=== PATIENT | female | born 2000 | race Caucasian/White ===

== ENCOUNTER → 2023-03-09 | Outpatient (CLI) | payer OTHER, SELFPAY ==
[2023-03-09 10:42] LABS: Absolute Lymphocyte Count 1.13 X10^3/uL (0.83-4.51); Absolute Neutrophil Count 4.9 X10^3/uL (2.0-7.7); Basophil# 0.04 X10^3/uL; Basophil% 0.6 % (0-1); Eosinophil# 0.05 X10^3/uL; Eosinophils% 0.8 % (0-5); Hematocrit 41.4 % (37-47); Lymphocyte # 1.13 X10^3/ul (0.83-4.51); Lymphocyte % 17.4 % (19-41); Mean Corp Hgb Conc 33.8 g/dL (32-36); Mean Corpuscular Hgb 30.3 pg (27.0-32.0); Mean Corpuscular Volume 89.6 fL (81-99); Mean Platelet Vol. 10.5 fl (6.2-12.0); Monocyte# 0.36 X10^3/uL; Monocyte% 5.5 % (0-10); NRBC Flagged by Analyzer 0 % (0-5); Neutrophil # 4.88 X10^3/uL (2.7-7.7); Neutrophil % 75.2 % (47-70); Platelet Count 262 K/mm3 (150-450); RBC Distribution Width CV 11.9 % (11.6-14.6); RBC Distribution Width SD 38.5 fl (35.1-43.9); Red Blood Count 4.62 M/mm3 (4.2-5.4); White Blood Count 6.5 K/mm3 (4.4-11.0)
[2023-03-09 11:23] LABS: NATERA MAILED SPECIMEN
[2023-03-09 11:43] LABS: HIV - WCH Non-Reactive (Nonreactive); Hepatitis B Surface Antigen Non-Reactive (Nonreactive); Hepatitis C Antibody Non-Reactive (Nonreactive); Rubella IgG Non-Reactive (Nonreactive); Syphilis Antibodies Non-reactive
[2023-03-10 22:07] LABS: Chlamydia By Nucleic Acid AMP Negative (Negative); Gonococcus By Nucleic Acid AMP Negative (Negative)
[2023-03-11 17:23] LABS: HPV Reflexed? NOT INDICATED
== END | disposition home or self-care (01) ==
PROVIDERS: Referring Provider Advanced Practice Midwife; Visit Provider Advanced Practice Midwife
DX: Z34.00 Encounter for supervision of normal first pregnancy, unspecified trimester (principal)
CPT/HCPCS: 36415; 85025; 86703; 86762; 86780; 86803; 86850; 86900; 86901; 87086; 87340; 87491; 87591; 88175; G0145

== ENCOUNTER → 2023-05-10 | Outpatient (CLI) | payer SELFPAY, OTHER ==
--- NOTE | 2023-05-10 12:14 | US_ITS ---
STUDY: SECOND AND THIRD TRIMESTER OBSTETRICAL ULTRASOUND REASON FOR EXAM: Female, 22 years old -- ANATOMY -- LMP: December 28, 2022. TECHNIQUE: Transabdominal and Transvaginal TECHNICAL QUALITY: Adequate. PRIOR ULTRASOUND: None. FINDINGS: There is a single intrauterine fetus. The fetus is in a cephalic presentation. There is demonstrated cardiac activity with a heart rate of 162 bpm. There is a normal amniotic fluid volume. The largest amniotic fluid pocket measures 2.9 cm x 6.6 cm. The amniotic fluid index (WATSON) is within normal limits. The placenta is posterior in location and is not low lying. There are Grade 0 placental changes. The cervix measures 6.1 cm in length. The adnexal regions are not visualized. BIOMETRY: BPD: 4.41 cm: 19 weeks, 2 days HC: 16.28 cm: 19 weeks, 0 days AC: 13.86 cm: 19 weeks, 2 days FL: 3.02 cm: 19 weeks, 2 days CI: 81.6% FL/BPD: 68.4% FL/HC: FL/AC: 21.8% HC/AC: 1.17 age by current US: 19 weeks, 0 days. LANCE by current US: October 04, 2023. Estimated weight: 285 grams, +/- 43 grams, 63.6 %. Age by LMP: 19 weeks, 0 days. LANCE by LMP: October 04, 2023. ANATOMY: Gender: Male Cranium: Normal lateral ventricles. Normal choroid plexus. Normal cerebellum. Normal cisterna magna. Normal face, nose and lips. Chest: Normal 4-chamber heart. Abdomen/Pelvis: Normal diaphragm. Normal stomach. Normal abdominal wall. Normal cord insertion. Normal 3 vessel cord. Normal kidneys. Normal bladder. Spine: Normal cervical spine. Normal thoracic spine. Normal lumbar spine. Normal sacrum. Extremities: Normal bilateral upper extremities. Normal bilateral lower extremities. US/OB Anatomy Scan IMPRESSION: Single live intrauterine gestation with mean gestational age of 19 weeks. Electronically Signed: Joao Noel MD at 9:37 EDT ,
== END | disposition home or self-care (01) ==
LOC: OPUS 12:12
PROVIDERS: Referring Provider Advanced Practice Midwife; Visit Provider Advanced Practice Midwife
DX: Z34.90 Encounter for supervision of normal pregnancy, unspecified, unspecified trimester (principal)
CPT/HCPCS: 76805; 76817

== ENCOUNTER → 2023-07-07 | Outpatient (CLI) | payer OTHER, SELFPAY ==
[2023-07-07 10:28] LABS: Absolute Lymphocyte Count 1.39 X10^3/uL (0.83-4.51); Basophil# 0.07 X10^3/uL; Eosinophil# 0.07 X10^3/uL; Hematocrit 38.1 % (37-47); Hemoglobin 12.8 g/dL (12.0-15.0); Lymphocyte # 1.39 X10^3/ul (0.83-4.51); Lymphocyte % 19.7 % (19-41); Mean Corp Hgb Conc 33.6 g/dL (32-36); Mean Corpuscular Hgb 31.5 pg (27.0-32.0); Mean Corpuscular Volume 93.8 fL (81-99); Mean Platelet Vol. 10.2 fl (6.2-12.0); Monocyte# 0.46 X10^3/uL; Monocyte% 6.5 % (0-10); NRBC Flagged by Analyzer 0 % (0-5); Neutrophil # 4.99 X10^3/uL (2.7-7.7); Neutrophil % 70.8 % (47-70); Platelet Count 226 K/mm3 (150-450); RBC Distribution Width CV 12.7 % (11.6-14.6); RBC Distribution Width SD 43.9 fl (35.1-43.9); Red Blood Count 4.06 M/mm3 (4.2-5.4); White Blood Count 7.1 K/mm3 (4.4-11.0)
[2023-07-07 10:52] LABS: Glucose Challenge Gest 1H 50g 103 mg/dL (70-140)
[2023-07-07 11:33] LABS: HIV - WCH Non-Reactive (Nonreactive); Syphilis Antibodies Non-reactive
== END | disposition home or self-care (01) ==
LOC: LAB 10:01
PROVIDERS: PCP Family Medicine; Referring Provider Advanced Practice Midwife; Visit Provider Advanced Practice Midwife
DX: Z34.00 Encounter for supervision of normal first pregnancy, unspecified trimester (principal)
CPT/HCPCS: 36415; 82950; 85025; 86703; 86780

== ENCOUNTER → 2023-09-02 | Outpatient (CLI) | payer OTHER, SELFPAY ==
--- NOTE | 2023-09-02 12:08 | US_ITS ---
EXAM: US , LIMITED CLINICAL INDICATION: uterine size date discrepancy TECHNIQUE: Real-time limited ultrasound of the maternal uterus with image documentation. COMPARISON: US Limited dated 05/10/2023 FINDINGS: FETUS: Single fetus. GESTATIONAL AGE: Estimated gestational age by measurements is 30 weeks 6 days. Clinical gestational age is 35 weeks 3 days. LANCE: Clinical LANCE is October 04, 2023. Normal interval growth. EFW: Estimated weight is 2429 g. BPD: Biparietal diameter is 8.2 cm. HC: Head circumference is 31.8 cm. AC: Abdominal circumference is 30.1 cm. FL: Femur length is 7.1 cm. POSITION: Breech presentation. HEART RATE: cardiac rate is 135 bpm. PLACENTA: Posterior left lateral placenta. AMNIOTIC FLUID: Amniotic fluid index is 7.8 cm. CERVIX: Cervix is not adequately visualized. US/OB Limited With Biometrics IMPRESSION: Single live third trimester intrauterine gestation in breech presentation. Normal interval growth. Electronically Signed: Han Schwartz MD at 14:15 EST ,
== END | disposition home or self-care (01) ==
LOC: OPUS 12:08
PROVIDERS: PCP Family Medicine; Referring Provider Advanced Practice Midwife; Visit Provider Advanced Practice Midwife
DX: O26.849 Uterine size-date discrepancy, unspecified trimester (principal); Z3A.00 Weeks of gestation of pregnancy not specified
CPT/HCPCS: 76816

== ENCOUNTER 2023-09-09 17:50 | Inpatient (IN) | payer SELFPAY, OTHER ==
[2023-09-09] VITALS (10 sets, daily range): BP systolic 106–128; BP diastolic 53–71; PULSE 74–93; RESP 12–18; TEMP 36.4–37.3; O2SAT 96–99; BMI 27.6
[2023-09-09] MEDS: Lactated Ringers 1,000 ML 999 ML IV (18:20)
[2023-09-09 18:48] LABS: Absolute Lymphocyte Count 1.64 X10^3/uL (0.83-4.51); Absolute Neutrophil Count 6.2 X10^3/uL (2.0-7.7); Basophil# 0.05 X10^3/uL; Basophil% 0.6 % (0-1); Eosinophil# 0.08 X10^3/uL; Eosinophils% 0.9 % (0-5); Hemoglobin 12.7 g/dL (12.0-15.0); Lymphocyte # 1.64 X10^3/ul (0.83-4.51); Lymphocyte % 18.9 % (19-41); Mean Corp Hgb Conc 33.4 g/dL (32-36); Mean Corpuscular Hgb 30.9 pg (27.0-32.0); Mean Corpuscular Volume 92.5 fL (81-99); Mean Platelet Vol. 10.8 fl (6.2-12.0); Monocyte# 0.59 X10^3/uL; Monocyte% 6.8 % (0-10); NRBC Flagged by Analyzer 0 % (0-5); Neutrophil # 6.19 X10^3/uL (2.7-7.7); Neutrophil % 71.5 % (47-70); Platelet Count 226 K/mm3 (150-450); RBC Distribution Width CV 12.8 % (11.6-14.6); RBC Distribution Width SD 43.1 fl (35.1-43.9); Red Blood Count 4.11 M/mm3 (4.2-5.4); White Blood Count 8.7 K/mm3 (4.4-11.0)
[2023-09-09] MEDS: Acetaminophen 500 MG Tablet 1000 MG PO (18:54)
[2023-09-09] MEDS: Sodium Citrate/Citric Acid 30 ML UDC PO (19:27)
[2023-09-09] MEDS: Lactated Ringers 1,000 ML 150 ML IV (19:27)
[2023-09-09 20:28] LABS: Syphilis Antibodies Non-reactive
[2023-09-09] MEDS: Ondansetron 4 MG/2 ML Vial IV (20:33)
--- NOTE | 2023-09-09 20:44 | HP.PCM.OB_ITS ---
HPI - General General Date of Admission: 09/09/23 HPI Narrative BETZY WORTHY, is a 23 F who presents with oligohydramnios WATSON 3.5 cm on US today, decreased movement. no vb lof no regular ctx, 2 cm dilated and breech. Maternal Data Information LANCE Calculator Estimated Delivery Date Method Current WG Current Estimate 10/04/23 LMP (Certain) 36w 3d PFSH PFS Medical History (Updated 09/09/23 @ 20:[address] Betzy Blanton MD) History of ovarian cyst Oligohydramnios Home Medications vitamin#30 30 mg iron-10 mg iron-folic acid 1 mg-omg3 capsule 1 cap PO DAILY 03/09/23 [History Last Taken 09/09/23 12:00] Allergy/AdvReac Type Severity Reaction Status Date / Time No Known Allergies Allergy Verified 09/09/23 18:11 Family History Grandfather Heart disease Surgical History S/P appendectomy Social History adopted: No household members: spouse current occupational status: unemployed pets and animals: Yes pets and animals: dog(s) history of recent travel: No sexually active: Yes Smoking Status: Never smoker alcohol intake: never substance use type: does not use caffeine: Yes Type: coffee Number of servings: 1 seatbelt use: always do you feel safe at home: Yes 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 History 1 Elective abortions Hx Para 0 Spontaneous abortions Hx # Term Pregnancies Ectopic pregnancies Hx # Pregnancies Multiple births # of living children Visit Details Expected Delivery Route/Plan Labor Preferences- CB/BF classes: discussed and encouraged labor support person: Roger labor intervention preferences: unmedicated preferred, hydrotherapy pain management options preferred: hydrotherapy cut cord/dad catch: [] : Wants PP control planned: [] discussed possible routes of delivery and associated risks: [] special requests: [] Plans Covid status: discussed and declines Flu vaccine: declines Tdap vaccine: declines Rhogam: NA LARC form signed: completed. Problem list reviewed and updated with the most current plan of care details and appropriate orders placed. Relevant counseling for the gestational age provided. Continue routine care and follow up unless otherwise noted in visit notes/problem list details OB Flowsheet Initial Weight: Not Recorded Date -?-?-?-?-?-?-?-?-?-?-?-?- EGA Weight BP Urine Prot -?-?-?-?-?-?-?-?-?-?-?-?- Glucose FHR FuHt Pres Dilation -?-?-?-?-?-?-?-?-?-?-?-?- Effaced St Visit Note 03/09/23 -?-?-?-?-?-?-?-?-?-?-?-?- 10w 1d 125 lb 4 oz 122/75 -?-?-?-?-?-?-?-?-?-?-?-?- 165 -?-?-?-?-?-?-?-?-?-?-?-?- KW-CRL 3.45cm on handheld US. 04/07/23 -?-?-?-?-?-?-?-?-?-?-?-?- 14w 2d 125 lb 107/70 Negative -?-?-?-?-?-?-?-?-?-?-?-?- Negative 145 -?-?-?-?-?-?-?-?-?-?-?-?- KW-No vb/crampin g. labs reviewed. US ordered-[facility] 05/10/23 -?-?-?-?-?-?-?-?-?-?-?-?- 19w 0d 132 lb 121/73 Negative -?-?-?-?-?-?-?-?-?-?-?-?- Negative 143 -?-?-?-?-?-?-?-?-?-?-?-?- LC-no vb/crampin g. no concerns. has anatomy today. 06/07/23 -?-?-?-?-?-?-?-?-?-?-?-?- 23w 0d 137 lb 117/74 Negative -?-?-?-?-?-?-?-?-?-?-?-?- Negative 144 22 -?-?-?-?-?-?-?-?-?-?-?-?- KW-no vb/crampin g. good fm. 28 week labs discussed. Normal anatomy scan. CBE classes discussed. 07/07/23 -?-?-?-?-?-?-?-?-?-?-?-?- 27w 2d 142 lb 4 oz 121/74 Nega tive -?-?-?-?-?-?-?-?-?-?-?-?- Negative 155 26 -?-?-?-?-?-?-?-?-?-?-?-?- LC- no vb/ctx/lo f. good fm. normal 28 weeks. passed glucose. LC- no vb/ctx/lof. good fm. normal 28 weeks. passed glucose. larc completed. declines tdap. 07/22/23 -?-?-?-?-?-?-?-?-?-?-?-?- 29w 3d 144 lb 4 oz 113/72 Trac e -?-?-?-?-?-?-?-?-?-?-?-?- Negative 148 28 -?-?-?-?-?-?-?-?-?-?-?-?- LC- no lof/ctx/v b. good fm. no concerns. pedi discussed 08/06/23 -?-?-?-?-?-?-?-?-?-?-?-?- 31w 4d 147 lb 6 oz 123/77 Nega tive -?-?-?-?-?-?-?-?-?-?-?-?- Negative 145 30 -?-?-?-?-?-?-?-?-?-?-?-?- JV-- no lof, vag inal bleeding or dec fm. starting to feel round ligament pain. remedies discussed. 08/18/23 -?-?-?-?-?-?-?-?-?-?-?-?- 33w 2d 149 lb 8 oz 117/74 117/74 Negative -?-?-?-?-?-?-?-?-?-?-?-?- Negative 140 30 -?-?-?-?-?-?-?-?-?-?-?-?- KW- no vb/lof/ct x. good fm. discussed possible US at next visit if still measuring S<D. 09/02/23 -?-?-?-?-?-?-?-?-?-?-?-?- 35w 3d 154 lb 120/60 Negative -?-?-?-?-?-?-?-?-?-?-?-?- Negative 145 33 Cephalic -?-?-?-?-?-?-?-?-?-?-?-?- SM- no vb lof go od fm no regular ctx getting ultrasound today 09/09/23 -?-?-?-?-?-?-?-?-?-?-?-?- 36w 3d 154 lb 8 oz 116/78 Nega tive -?-?-?-?-?-?--?-?-?-?-?-?- Negative 140 32 Breech 2 -?-?-?-?-?-?-?-?-?-?-?-?- 60 -3 LC- no vb/ ctx/lof. good fm. breech on leopolds and handheld us. has us this afternoon. check WATSON/growth. if favorable would consent to version. NST FHR Rate Baby A Baseline: 130 Variability:: Moderate Accelerations:: 15 x 15 Decelerations:: None NST Reactive:: Yes FHR Category:: Category I Uterine Activity:: irregular ROS Constitutional Constitutional: Reports systems reviewed and no addt'l complaints, except as documented Eyes Eyes: Denies change in vision ENT HEENT: Reports systems reviewed and no addt'l complaints, except as documented; Denies headache(s) Cardiovascular Cardiovascular: Reports systems reviewed and no addt'l complaints, except as documented; Denies chest pain or dyspnea Respiratory/Chest Respiratory/Chest: Reports systems reviewed and no addt'l complaints, except as documented Gastrointestinal Gastrointestinal: Reports systems reviewed and no addt'l complaints, except as documented; Denies abdominal pain Genitourinary Genitourinary: Reports systems reviewed and no addt'l complaints, except as documented, contractions Details: present (irregular) and movement Details: present; Denies dysuria or genital lesions Musculoskeletal Musculoskeletal: Reports systems reviewed and no addt'l complaints, except as documented Neurologic Neurologic: Reports systems reviewed and no addt'l complaints, except as documented Endocrine Endocrinology: Reports systems reviewed and no addt'l complaints, except as documented Vital Signs Vital Signs Vital Signs: 09/09/23 18:04 09/09/23 18:04 09/09/23 18:04 Temperature Temperature Source Pulse Rate 86 78 Respiratory Rate Blood Pressure 122/56 H Blood Pressure Mean BP Systolic 122 BP Diastolic 56 Blood Pressure Source Blood Pressure Position Blood Pressure Location Pulse Ox Oxygen Delivery Method 09/09/23 18:04 09/09/23 19:18 09/09/23 19:18 Temperature Temperature Source Pulse Rate 93 Respiratory Rate Blood Pressure 122/71 H Blood Pressure Mean BP Systolic 122 BP Diastolic 71 Blood Pressure Source Blood Pressure Position Blood Pressure Location Pulse Ox 99 Oxygen Delivery Method 09/09/23 18:04 09/09/23 18:04 Temperature 99.2 F H Temperature Source Oral Pulse Rate 78 Respiratory Rate 16 Blood Pressure 122/56 H Blood Pressure Mean 78 BP Systolic BP Diastolic Blood Pressure Source Monitor Blood Pressure Position Right Lateral Blood Pressure Location Left Arm Pulse Ox 98 99 Oxygen Delivery Method Room Air Weight Weight: 156 lb 1.396 oz Body Mass Index (BMI) 27.6 Physical Exam Const alert, oriented x3, no apparent distress and healthy appearing HEENT normocephalic and moist oral mucous membranes Head and Scalp: atraumatic Neck full ROM, no lymphadenopathy, supple and thyroid normal General: trachea midline Lymph Lymphatic: no lymphadenopathy noted Chest inspection of chest normal Resp normal respiratory effort Cardio regular rate GI normal to inspection, nondistended, normoactive bowel sounds, soft to palpation and non-tender Inspection: gravid Extremity normal to inspection General Extremity: Negative for edema Skin no rashes or lesions noted Neuro no focal motor deficits and deep tendon reflexes 2+ bilaterally Motor Exam: strength 5/5 throughout and clonus absent Psych mental status grossly normal Labs Labs Labs: Blood Type A POSITIVE Antibody Screen NEGATIVE Hct 38.0 % (37-47) Hgb 12.7 g/dL (12.0-15.0) Obstetrics Ultrasound Syphilis Total Ab Non-reactive Rubella IgG Antibody Non-Reactive (Nonreactive) Hep Bs Antigen Non-Reactive (Nonreactive) Hepatitis C Antibody Non-Reactive (Nonreactive) Chlamydia DNA (TESHA) Negative (Negative) N.gonorrhoeae DNA (TESHA) Negative (Negative) HIV 1&2 Antibody Non-Reactive (Nonreactive) Glucose 1 Hr 50 gm 103 mg/dL (70-140) Assessment & Plan (1) Oligohydramnios in third trimester: COMMENT: watson 3.5 cm upon reviewing images recommend immediate delivery 36 weeks (2) Breech presentation: COMMENT: if WATSON normal would like to trial a version between 37-38 weeks. (3) Uterine size date discrepancy : COMMENT: growth us ordered (4) Rubella non-immune status, antepartum: COMMENT: offer MMR (5) Supervision of normal first : COMMENT: PRR LANCE 10/04/23 boy C(K)andrew Roger (6) : QUALIFIERS: Weeks of gestation: 36 weeks Qualified Code(s): Z3A.36 - 36 weeks gestation of COMMENT: NIPT low risk carrier and ntd declined, anatomy nl, nl GCT (7) Decreased movements in third trimester: PLAN: Plan proceed with primary low transverse section
--- NOTE | 2023-09-09 20:48 | EX.PCM.OBRPT ---
Assessment & Plan (1) delivery delivered: COMMENT: SM 36 Oligo LTCS breech [place] boy Maternal Data Information LANCE Calculator Estimated Delivery Date Method Current WG Current Estimate 10/04/23 LMP (Certain) 36w 3d Final LANCE Source: LMP Details Operative Information Date of Procedure: 09/09/23 Pre-Operative Diagnosis: breech oligo doris 3.5 cm Post-Operative Diagnosis: same Indications for : Breech Indications Narrative: Surgeon: Betzy Blanton MD Classification: ANGIE Procedure Type: low transverse scaffold setter #1: Alena Lam Type of Anesthesia: Spinal Special Medications: none Antibiotic Given: Ancef 2 grams IV x1 Drain: Lopez to straight drain Fluids Replaced: crystalloid Procedure Start Time: 21:06 Procedure Stop Time: 22:08 Findings Description of Procedure: Spinal anesthesia was placed without difficulty. Lopez catheter was placed. The patient was placed in the dorsal supine position with leftward tilt. Patient was prepped and draped in the normal sterile fashion. Pfannenstiel skin incision was made with the scalpel and carried through to the underlying layer of fascia with the scalpel. Fascia was nicked in the midline and the incision extended laterally. The rectus bellies were dissected off superiorly and inferiorly with out complication both sharply and bluntly. The peritoneum was entered digitally. The incision was stretched and a low transverse uterine incision was made with the scalpel. The buttox was delivered atraumatically and the right and left legs were swept anteriorly and delivered, followed by the body and the arms which were swept anteriorly and delivered. Gentle traction was placed on the mentum to flex the head which was delivered without complication. The cord was clamped and cut and the was handed off to awaiting nurse. The placenta was delivered spontaneously immediately following and was noted to be intact and have a three-vessel cord. The uterus was exteriorized cleared of all clots and debris, and the incision was closed in a single layer closure using #1 Monocryl. The ovaries and fallopian tubes were noted to be within normal limits. The uterus was returned to the maternal abdomen and gutters were cleared of all clots and debris. The peritoneum was closed with 3-0 Monocryl in a running fashion. horacio placed over incision. Fascia was closed with 0 PDS in a running fashion. Subcutaneous tissue was copiously irrigated and the skin was closed with 3-0 Monocryl in a subcuticular fashion. Mepilex dressing was applied without complication. Patient was taken to recovery in stable condition. It was discussed with the patient that based on the clinical information obtained during this encounter, combined with her history, at this time I would recommend vaginal or cesareans for future deliveries if further pregnancies are desired. Amniotic Membrane Rupture Type: Artificial Amniotic Fluid Description: Clear Placenta Disposition: [facility] Cord Vessel Description: 3 Vessels Delayed Cord Clamping: Yes Complications Risks of Surgery Discussed w/Patient: Bleeding, Infection, Need for Future C-Sections and Injury to surrounding structure(s) including bowel and bladder Vaginal Delivery Complication Complications: None Admit VTE Documentation VTE Present on Admission: No VTE Mechan Device Prophylaxis: SCD's Procedures Urinary/Genital [id number]: [id number] Delivery [facility]
--- NOTE | 2023-09-09 20:53 | DCINST_ITS ---
Discharge Instructions Diet Discharge Diet: No restrictions Activity Discharge Activity: May Not Drive (for 2 weeks or while taking narcotic pain medications.), May Shower and May Take a Tub Bath (in 7 days) May shower in (days): 0 May resume sexual activity in: 4-6 weeks Weight Bearing Status: Full weight bearing Lifting Restrictions: 20 pounds Dressing / Incision Call your doctor if your incision/area has: Continuous Slow Oozing, Sudden Increased Bleeding, Increased Pain/ Swelling, Increased Redness and Foul Smelling Discharge Call your doctor if you observe: Fever of 101 or Higher and Using more than 1 pad per hour (for 2 hours) Suture Line Care: Avoid Pulling/Pushing and Avoid Pinching/Bending Cleanse incision/area with: Soap & Water and Keep Dressing Clean & Dry Follow Up Care Please Follow Up With: Betzy Blanton MD When: Call [phone] to make an appointment for an incision check in 1-2 weeks. Test Results: Test results from this visit will be discussed in further detail at your follow- up appointment, if applicable. Discharge Plan Admission Admit Date/Time: 09/09/23 17:50 Attending Provider: Betzy Blanton Primary Care Provider: Dudley Escalona Discharge Orders/Prescriptions Prescriptions: New oxycodone-acetaminophen [Percocet] 5-325 mg tablet 1 tab PO Q6H PRN (Reason: pain) 7 Days Qty: 10 0RF naproxen [naproxen] 500 mg tablet 500 mg PO BID PRN PRN (Reason: Pain) Qty: 30 1RF No Action PNV #[id number] 30 mg iron-10 mg iron-1 mg capsule 1 cap PO DAILY Referrals / Follow Up: Dudley Escalona MD [Primary Care Provider] - Disposition Disposition (needs filled in before D/C Order can be placed): Home, Self Care
[2023-09-09] MEDS: Cefazolin 2 GM in 0.9% Normal Saline (100mL Bag) 100 ML IV (21:25)
[2023-09-09] MEDS: Oxytocin 15 Units/NS 250ml 15 UNITS/250 ML IV.SOLN 83 UNITS IV (22:15)
[2023-09-09] MEDS: Ketorolac 30 MG/ML Syringe IV (22:40)
[2023-09-10] VITALS (14 sets, daily range): BP systolic 80–133; BP diastolic 30–66; PULSE 48–94; RESP 15–16; TEMP 36.2–37.1; O2SAT 95–98
[2023-09-10] MEDS: Acetaminophen 500 MG Tablet 1000 MG PO ×4 (01:06→18:30)
[2023-09-10] MEDS: Lactated Ringers 1,000 ML 100 ML IV (01:06)
[2023-09-10] MEDS: Ketorolac 30 MG/ML Syringe IV ×3 (03:47→17:02)
[2023-09-10] MEDS: SimETHICONE 80 MG Chewable Tablet PO (03:47)
[2023-09-10] MEDS: LACTATED RINGERS 500 ML 999 ML IV (03:51)
[2023-09-10 04:08] LABS: Hemoglobin 10.7 g/dL (12.0-15.0); Mean Corp Hgb Conc 33.4 g/dL (32-36); Mean Corpuscular Hgb 31.2 pg (27.0-32.0); Mean Corpuscular Volume 93.3 fL (81-99); Mean Platelet Vol. 10.6 fl (6.2-12.0); Platelet Count 203 K/mm3 (150-450); RBC Distribution Width SD 44.1 fl (35.1-43.9); Red Blood Count 3.43 M/mm3 (4.2-5.4); White Blood Count 11.4 K/mm3 (4.4-11.0)
--- NOTE | 2023-09-10 08:33 | PN.OBGYN_ITS ---
Subjective Subjective Patient doing well without complaints. Tolerating PO. Ambulating and voiding without difficulty. feeding well. Denies chest pain, shortness of breath, calf pain/swelling, fevers, chills, lightheadedness. Objective Data Objective Data Vital Signs: Vital Signs Temp Pulse Resp BP Pulse Ox O2 Del Method 98.7 F 80 16 102/55 L 95 Room Air 09/10/23 08:15 09/10/23 08:15 09/10/23 08:15 09/10/23 08:15 09/10/23 08:15 09/10/23 08:15 Oxygen Delivery Method Room Air Weight: 156 lb 1.396 oz Body Mass Index (BMI) 27.6 Intake & Output: Intake and Output for Last 24 Hours 09/08/23 09/09/23 09/10/23 23:59 23:59 23:59 Intake Total 1530 / 1530 850 / 850 Output Total 400 / 400 700 / 700 Balance 1130 / 1130 150 / 150 Lab / Micro Data 09/10/23 04:04 Labs: Laboratory Results - last 24 hr 09/09/23 18:25: WBC 8.7, RBC 4.11 L, Hgb 12.7, Hct 38.0, MCV 92.5, MCH 30.9, MCHC 33.4, RDW Std Deviation 43.1, RDW Coeff of Chantale 12.8, Plt Count 226, MPV 10.8, Immature Gran % (Auto) 1.300 H, Neut % (Auto) 71.5 H, Lymph % (Auto) 18.9 L, [place]erry % (Auto) 6.8, Eos % (Auto) 0.9, Baso % (Auto) 0.6, Absolute Neuts (auto) 6.2, Absolute Lymphs (auto) 1.64, Nucleated RBC % 0, Syphilis Total Ab Non-r eactive, Blood Type A POSITIVE, Antibody Screen NEGATIVE 09/10/23 04:04: WBC 11.4 H, RBC 3.43 L, Hgb 10.7 L, Hct 32.0 L, MCV 93.3, MCH 31.2, MCHC 33.4, RDW Std Deviation 44.1 H, RDW Coeff of Chantale 13.0, Plt Count 203, MPV 10.6 ROS Constitutional Constitutional: Reports systems reviewed and no addt'l complaints, except as documented Cardiovascular Cardiovascular: Reports systems reviewed and no addt'l complaints, except as documented Respiratory/Chest Respiratory/Chest: Reports systems reviewed and no addt'l complaints, except as documented Gastrointestinal Gastrointestinal: Reports systems reviewed and no addt'l complaints, except as documented Physical Exam Const alert, oriented x3 and no apparent distress HEENT Head and Scalp: atraumatic Resp normal respiratory effort GI soft to palpation and non-tender Inspection: incision intact, healing well and drainage (none) Bimanual Exam - Vag & Uterus: uterus non-tender Uterus Palpation: uterus fundus firm (below Umbilicus) Assessment & Plan (1) Rubella non-immune status, antepartum: COMMENT: offer MMR (2) delivery delivered: COMMENT: SM 36 Oligo LTCS breech [place] boy PLAN: Plan s/p LTCS PPD # 1 1. routine post care 2. breast feeding- support given 3. rh positive 4. rubella non immune MMR if desired Capacity Legal Graphotype Operator Reflex Medical hold order details:: IF a medical hold is selected below, a suggested order for a MEDICAL HOLD will reflex upon signing the document. Next of kin: [place] law dictates a PRIORITY LIST for identifying legal decision-maker/legal next of kin in the following order (LNOK): 1st: The patient?s legal guardian, if any 2nd: The patient's spouse (if status is questionable, consult Risk Management) 3rd: The patient?s adult child(natacha) (majority, if multiple children) 4th: The patient?s parents 5th: The patient?s adult siblings (majority, if multiple children siblings)
[2023-09-10] MEDS: Senna/Docusate Sodium 1 Tablet PO (10:07)
[2023-09-10] MEDS: 0.9% Saline Lock 10 ML Syringe IV (17:03)
[2023-09-10] MEDS: Naproxen 500 MG Tablet PO (22:32)
[2023-09-11] MEDS: Acetaminophen 500 MG Tablet 1000 MG PO ×4 (00:35→18:26)
[2023-09-11 02:20] VITALS: BP 108/55; PULSE 75; RESP 16; TEMP 36.5; O2SAT 98
[2023-09-11] MEDS: Naproxen 500 MG Tablet PO ×3 (06:35→23:10)
--- NOTE | 2023-09-11 07:16 | PCM.PN.OB ---
Subjective Subjective Patient doing well without complaints. Tolerating PO. Ambulating and voiding without difficulty. feeding well. Denies chest pain, shortness of breath, calf pain/swelling, fevers, chills, lightheadedness. Objective Data Objective Data Vital Signs: Vital Signs Temp Pulse Resp BP Pulse Ox O2 Del Method 97.7 F L 75 16 108/55 L 98 Room Air 09/11/23 02:20 09/11/23 02:20 09/11/23 02:20 09/11/23 02:20 09/11/23 02:20 09/11/23 02:20 Oxygen Delivery Method Room Air Weight: 156 lb 1.396 oz Body Mass Index (BMI) 27.6 Intake & Output: Intake and Output for Last 24 Hours 09/09/23 09/10/23 09/11/23 23:59 23:59 23:59 Intake Total 1530 / 1530 1751.67 / 1751.67 Output Total 400 / 400 1550 / 1550 Balance 1130 / 1130 201.67 / 201.67 Lab / Micro Data 09/10/23 04:04 ROS Constitutional Constitutional: Reports systems reviewed and no addt'l complaints, except as documented Cardiovascular Cardiovascular: Reports systems reviewed and no addt'l complaints, except as documented Respiratory/Chest Respiratory/Chest: Reports systems reviewed and no addt'l complaints, except as documented Gastrointestinal Gastrointestinal: Reports systems reviewed and no addt'l complaints, except as documented Physical Exam Const alert, oriented x3 and no apparent distress HEENT Head and Scalp: atraumatic Resp normal respiratory effort GI soft to palpation and non-tender Inspection: incision intact, healing well and drainage (none) Bimanual Exam - Vag & Uterus: uterus non-tender Uterus Palpation: uterus fundus firm (below Umbilicus) Assessment & Plan (1) Rubella non-immune status, antepartum: COMMENT: offer MMR (2) delivery delivered: COMMENT: SM 36 Oligo LTCS breech [place] boy PLAN: Plan s/p LTCS PPD # 2 1. routine post care 2. breast feeding- support given 3. rh positive 4. rubella non immune MMR if desired
[2023-09-11 10:00] VITALS: BP 106/57; PULSE 86; RESP 14; TEMP 36.1; O2SAT 98
[2023-09-11] MEDS: Senna/Docusate Sodium 1 Tablet PO (10:01)
[2023-09-11] MEDS: SimETHICONE 80 MG Chewable Tablet PO (10:15)
[2023-09-11 14:59] VITALS: BP 112/58; PULSE 78; RESP 16; TEMP 36.2; O2SAT 98
[2023-09-11] MEDS: oxyCODONE 5 MG Tablet PO ×2 (16:16→21:11)
[2023-09-11 21:04] VITALS: BP 121/59; PULSE 74; RESP 18; TEMP 36.4; O2SAT 98
[2023-09-12] MEDS: Acetaminophen 500 MG Tablet 1000 MG PO ×3 (00:53→12:42)
[2023-09-12 03:15] VITALS: BP 92/41; PULSE 67; RESP 16; TEMP 36.4; O2SAT 98
[2023-09-12] MEDS: Naproxen 500 MG Tablet PO ×2 (06:38→14:32)
[2023-09-12] MEDS: SimETHICONE 80 MG Chewable Tablet PO (06:44)
--- NOTE | 2023-09-12 07:27 | NURSING ---
Patient declines MMR vaccine.
[2023-09-12] MEDS: Senna/Docusate Sodium 1 Tablet PO (08:58)
[2023-09-12 09:00] VITALS: BP 118/55; PULSE 82; RESP 14; TEMP 36.3; O2SAT 97
--- NOTE | 2023-09-12 10:30 | PCM.PN.OB ---
Subjective Subjective Patient doing well without complaints. Tolerating PO. Ambulating and voiding without difficulty. feeding well. Denies chest pain, shortness of breath, calf pain/swelling, fevers, chills, lightheadedness. Objective Data Objective Data Vital Signs: Vital Signs Temp Pulse Resp BP Pulse Ox O2 Del Method 97.4 F L 82 14 118/55 L 97 Room Air 09/12/23 09:00 09/12/23 09:00 09/12/23 09:00 09/12/23 09:00 09/12/23 09:00 09/12/23 09:00 Oxygen Delivery Method Room Air Weight: 156 lb 1.396 oz Body Mass Index (BMI) 27.6 Intake & Output: Intake and Output for Last 24 Hours 09/10/23 09/11/23 09/12/23 23:59 23:59 23:59 Intake Total 1751.67 / 1751.67 Output Total 1550 / 1550 Balance 201.67 / 201.67 Lab / Micro Data 09/10/23 04:04 ROS Constitutional Constitutional: Reports systems reviewed and no addt'l complaints, except as documented Cardiovascular Cardiovascular: Reports systems reviewed and no addt'l complaints, except as documented Respiratory/Chest Respiratory/Chest: Reports systems reviewed and no addt'l complaints, except as documented Gastrointestinal Gastrointestinal: Reports systems reviewed and no addt'l complaints, except as documented Physical Exam Const alert, oriented x3 and no apparent distress HEENT Head and Scalp: atraumatic Resp normal respiratory effort GI soft to palpation and non-tender Bimanual Exam - Vag & Uterus: uterus non-tender Uterus Palpation: uterus fundus firm (below Umbilicus) Assessment & Plan (1) Rubella non-immune status, antepartum: COMMENT: offer MMR (2) delivery delivered: COMMENT: SM 36 Olig[facility] LTCS breech [place] boy PLAN: Plan s/p LTCS PPD # 3 1. routine post care 2. breast feeding- support given 3. rh positive 4. rubella non immune
--- NOTE | 2023-09-12 10:31 | DS.PCM_ITS ---
Providers Date of Admission: 09/09/23 Primary Care Physician: Dr. Dudley Escalona MD Reason For Visit: PRIMARY Diagnosis Discharge Diagnosis (1) Rubella non-immune status, antepartum: Status: Acute Code(s): O09.899 - Supervision of other high risk pregnancies, unspecified trimester; Z28.39 - Other underimmunization status (2) delivery delivered: Status: Acute Code(s): O82 - Encounter for delivery without indication Plan s/p LTCS PPD # 3 1. routine post care 2. breast feeding- support given 3. rh positive 4. rubella non immune Medications at Discharge Home Medications vitamin#30 30 mg iron-10 mg iron-folic acid 1 mg-omg3 capsule 1 cap PO DAILY 03/09/23 naproxen 500 mg tablet 500 mg PO BID PRN PRN Pain #30 tabs 09/09/23 oxycodone-acetaminophen 5 mg-325 mg tablet (Percocet) 1 tab PO Q6H PRN pain 7 days #10 tabs 09/09/23 Hospital Course Summary of Care Provided Hospital Course: patient presented for [facility] for breech and oligo, and had an uncomplicated delivery. Postoperatively patient had return of bowel and bladder function and was ambulating well, tolerating adequate p.o., and was stable for discharge to home on postop day #3. Discharge medications naproxen and Percocet. Follow-up in office in 2 weeks for incision check in 6 weeks for visit. Routine post section diet and activity instructions. Weight / BMI Weight Weight: 156 lb 1.396 oz Body Mass Index (BMI) 27.6 ABG / Lab / Microbiology Data 09/10/23 04:04 D/C Instructions Discharge Diet: No restrictions Discharge Activity: May Not Drive (for 2 weeks or while taking narcotic pain medications.), May Shower and May Take a Tub Bath (in 7 days) May shower in (days): 0 May resume sexual activity in: 4-6 weeks Weight Bearing Status: Full weight bearing Call your doctor if your incision/area has: Continuous Slow Oozing, Sudden Increased Bleeding, Increased Pain/ Swelling, Increased Redness and Foul Smelling Discharge Call your doctor if you observe: Fever of 101 or Higher and Using more than 1 pad per hour (for 2 hours) Suture Line Care: Avoid Pulling/Pushing and Avoid Pinching/Bending Cleanse incision/area with: Soap & Water and Keep Dressing Clean & Dry Please Follow Up With: Betzy Blanton MD When: Call [phone] to make an appointment for an incision check in 1-2 weeks. Meaningful Use Info Meaningful Use Diagnoses (Choose all that apply): None applicable Discharge Plan Admission Admit Date/Time: 09/09/23 17:50 Attending Provider: Betzy Blnaton Primary Care Provider: Dudley Escalona Discharge Orders/Prescriptions Prescriptions: New oxycodone-acetaminophen [Percocet] 5-325 mg tablet 1 tab PO Q6H PRN (Reason: pain) 7 Days Qty: 10 0RF naproxen [naproxen] 500 mg tablet 500 mg PO BID PRN PRN (Reason: Pain) Qty: 30 1RF No Action PNV #[id number] 30 mg iron-10 mg iron-1 mg capsule 1 cap PO DAILY Referrals / Follow Up: Dudley Escalona MD [Primary Care Provider] - Disposition Disposition (needs filled in before D/C Order can be placed): Home, Self Care
[2023-09-12 12:52] VITALS: BP 120/65; PULSE 81; RESP 16; TEMP 36.3; O2SAT 99
== END 2023-09-12 15:23 | disposition home or self-care (01) | DRG 786 ==
PROVIDERS: Admitting Provider Obstetrics & Gynecology; PCP Family Medicine; Visit Provider Obstetrics & Gynecology
DX: O41.03X0 Oligohydramnios, third trimester, not applicable or unspecified (principal); O60.14X0 Preterm labor third trimester with preterm delivery third trimester, not applicable or unspecified; O32.1XX0 Maternal care for breech presentation, not applicable or unspecified; Z37.0 Single live birth; O36.8130 Decreased fetal movements, third trimester, not applicable or unspecified; Z3A.36 36 weeks gestation of pregnancy; O26.843 Uterine size-date discrepancy, third trimester
CPT/HCPCS: 59025; 59050; 85025; 85027; 86780; 86850; 86900; 86901; 99221; J7120; A4216; G0378; J2405

== ENCOUNTER → 2023-09-09 | Outpatient (CLI) | payer OTHER, SELFPAY ==
--- NOTE | 2023-09-09 16:16 | US_ITS ---
STUDY: SECOND AND THIRD TRIMESTER OBSTETRICAL ULTRASOUND - LIMITED REASON FOR EXAM: Female, 23 years old WATSON LMP: 12/28/2022 PRIOR ULTRASOUND: 09/02/2023. TECHNIQUE: Transabdominal TECHNICAL QUALITY: Adequate. FINDINGS: There is a single intrauterine fetus. The fetus is in a breech presentation. There is demonstrated cardiac activity with a heart rate of 150 bpm. There is a normal amniotic fluid volume. The largest amniotic fluid pocket measures 2.8 cm. The amniotic fluid index (WATSON) is 6.6 cm. The placenta is posterior in location and is not low lying. There are Grade 1 placental changes. The cervix measures 2.9 cm in length. Age by LMP: 36 weeks, 3 days. LANCE by LMP: 10/04/2023. US/OB Limited (No Biometrics) IMPRESSION: Normal single live intrauterine gestation, breech position, with WATSON of 6.6 and clinical EGA of 36 weeks 3 days. Electronically Signed: Helder Stubbs MD at 16:59 EST ,
== END | disposition home or self-care (01) ==
LOC: US 16:15
PROVIDERS: PCP Family Medicine; Referring Provider Obstetrics & Gynecology; Visit Provider Obstetrics & Gynecology
DX: Z34.90 Encounter for supervision of normal pregnancy, unspecified, unspecified trimester (principal); Z3A.35 35 weeks gestation of pregnancy
CPT/HCPCS: 76815; 87081

== ENCOUNTER 2025-01-20 14:25 | Emergency (ER) | payer OTHER, SELFPAY ==
[2025-01-20 14:26] VITALS: BP 125/69; PULSE 92; RESP 16; TEMP 36.7; O2SAT 100; BMI 23.9
--- NOTE | 2025-01-20 14:46 | ED.VIS.FEGU ---
HPI HPI - Female History of Present Illness Chief Complaint: Vag Bld, Preg Informant: patient and spouse/S.O. Associated Symptoms P: 1 Narrative Narrative: 24-year-old female presenting to the emergency room with first trimester vaginal bleeding. Patient is at about 7 weeks. She states that this week she was seen on Wednesday by DOCTOR NATUROPATHIC with 1 day history of vaginal bleeding. She states there was an ultrasound that showed a heart rate. She was put on pelvic rest. She states that today she noticed heavier bleeding than normal with some clots and and slight increase in the cramping. No reported fevers. She notes first was unremarkable to about 36 weeks and when she ended up needing a due to oligohydramnios. Patient is a positive by chart review at this institution. [facility] Medical History Oligohydramnios History of ovarian cyst Home Medications ?Medication ?Instructions ?Recorded ?Last Taken ?Type ritual PO 01/16/25 Unknown History Allergy/AdvReac Type Severity Reaction Status Date / Time No Known Allergies Allergy Verified 01/19/25 15:03 Family History Grandfather Heart disease Maternal & Paternal Surgical History delivery delivered S/P appendectomy Social History adopted: No household members: spouse housing: house number of children: 1 current occupational status: unemployed current occupation: [employer] pets and animals: Yes pets and animals: dog(s) history of recent travel: No sexually active: Yes Smoking Status: Never smoker alcohol intake: never substance use type: does not use well-balanced diet: daily or most days caffeine: Yes Type: coffee Number of servings: 1 eating out: rarely or never during the past year weight has: remained stable what type of physical activity do you participate in: none irving/restorationism: Nondenominational seatbelt use: always do you feel safe at home: Yes 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 ROS ROS ED Constitutional Constitutional ED: Denies chills or weight loss Eyes Eyes: Denies change in vision or diplopia ENT ENT ED: Denies ear pain, rhinorrhea or sore throat Cardiovascular Cardiovascular: Denies chest pain, orthopnea, palpitations or racing heartbeat Respiratory/Chest Respiratory/Chest: Denies cough, dyspnea or orthopnea Gastrointestinal Gastrointestinal: Denies abdominal pain, diarrhea, nausea or vomiting Genitourinary Genitourinary ED: Reports other Details: See history of present illness-vaginal bleeding pelvic cramping ; Denies dysuria, hematuria or urinary frequency Musculoskeletal Musculoskeletal: Denies arthralgias or myalgias Integumentary Denies abscess or rash Neurologic Neurologic: Denies headache(s) or weakness Psychiatric Psychiatric: Denies anxiety, depression, suicidal ideation or suicidal thoughts Endocrine Endocrinology: Denies polydipsia, polyphagia or polyuria Allergic/Immunologic Allergic/Immunologic ED: Denies mouth swelling, tongue swelling or urticaria EXAM Physical Exam Const Vital Signs: 01/20/25 14:26 01/20/25 15:54 01/20/25 16:58 Temperature 98.0 F 98 F Temperature Source Oral Pulse Rate 92 92 97 Respiratory Rate 16 16 14 Blood Pressure 125/69 H 124/52 H 123/55 H Blood Pressure Mean 87 76 77 Pulse Ox 100 100 99 Oxygen Delivery Method Room Air Room Air Positive well nourished and well developed General Appearance ED: well developed and NAD HEENT Reports normocephalic, head/scalp atraumatic and moist mucous membranes Eyes PERRL and EOMs intact bilaterally Neck no lymphadenopathy, supple and no JVD Resp normal respiratory effort and clear to auscultation bilaterally Cardio regular rate, regular rhythm and no murmurs GI normal to inspection, nondistended, normoactive bowel sounds and non-tender Palpation: soft Back/Spine no CVA tenderness and normal ROM Extremity normal to inspection General Extremety ED: Negative for edema General Extremity: Negative for edema Neuro oriented x3 and CN's II-XII intact bilaterally Sensorium / Orientation: alert Motor Exam: strength 5/5 throughout Psych mental status grossly normal Mood & Affect: Negative for depressed or tearful Skin no rashes or lesions noted and no wounds MDM MDM MDM Narrative Medical decision making narrative: Differential diagnosis occludes subchorionic bleed threatened miscarriage ectopic /heterotopic demise gestational trophoblastic disease cervical polyps infection cervicitis trauma The patient did have a pelvic examination performed by obstetrics on Wednesday. I reviewed their note. No obvious vaginal trauma or polyps noted. No evidence of cervicitis or uterine tenderness/adnexal tenderness noted. Patient's hemoglobin today is 13.7 with an hCG level of 7332. Pelvic ultrasound was obtained read by radiology reviewed by myself. This demonstrates single live intrauterine . Please see their read for follow-up details. I spoke with Dr. Gamaliel Ellison who follows the patient. Patient will continue pelvic rest and precautions for bleeding. She is to call Wednesday to schedule follow-up next week. History & Record Review Discussion w/independent historian: Patient and Significant other Additional record(s) reviewed:: Prior inpatient record, Prior outpatient record and Prior labs Lab Data Attestation: I reviewed the patient's lab results. Labs: Laboratory Results - last 24 hr 01/20/25 01/20/25 01/20/25 14:53 15:10 17:08 Hgb 13.7 Hct 39.9 HCG, Quant 7332 H Urine Color Rosie Urine Clarity Sl. Cloudy Urine pH 6.0 Ur Specific [place] 1.010 Urine Protein 30 H Urine Glucose (UA) Normal Urine Ketones Negative Urine Occult Blood 250 H Urine Nitrite Negative Urine Bilirubin Negative Urine Urobilinogen Normal Ur Leukocyte Esterase 25 H Urine RBC 10-25 SEEN Urine WBC 0-5 SEEN Ur Squamous Epith Cells 0-5 SEEN Urine Bacteria 0 SEEN Urine Mucus 0 SEEN POC Glucose 87 Radiography Diagnostic Testing: Clinical Impression(s) from Imaging Studies Obstetrics Ultrasound 01/20/25 14:47 IMPRESSION: Single live intrauterine . Details above. Reading Location: [place] [address] Discharge Plan Triage Chief Complaint: Vag Bld, Preg ED Provider: Gurjit Mendiola Dx/Rx/DC Orders Clinical Impression: Threatened , Instructions: Miscarriage Threatened Prescriptions: No Action ritual PO Primary Care Provider: Dudley Escalona Referrals: Dudley Escalona MD [Primary Care Provider] - Betzy Blanton MD [Med Staff - Active Staff] - (call on Wednesday to schedule follow up to be seen next week) Print Language: Malay Disposition Disposition: Home, Self Care Discharge Date/Time: 01/20/25 17:10
--- NOTE | 2025-01-20 14:47 | US_ITS ---
PROCEDURE: TRANSVAGINAL W/PREG US 01/20/2025 REASON FOR EXAM: FIRST TRIMESTER BLEEDING TECHNIQUE: Transabdominal and transvaginal. COMPARISON: None. FINDINGS: Number of Gestational Sacs: 1 Gestational Sac Shape: Normal Number of Fetuses: 1 Heart Rate: 119 (average) Survey of Visible Anatomic Structures: Grossly unremarkable for gestational age. Yolk Sac: Present and unremarkable. Placenta: Presently not well-visualized Amniotic Fluid Volume: Subjectively normal for gestational age. Uterine Abnormalities: Maternal uterus is unremarkable. Ovaries / Adnexa: Both maternal ovaries are visualized and unremarkable. Mild to moderate fluid in the cul-de-sac. DIMENSIONS: Parameter Measurement / EGA [place] Rump Length: 7 weeks and 0 days./ Gestational Sac: 13 x 12 x 5 mm (small)/ ESTIMATED GESTATIONAL AGE: By Ultrasound: 6 weeks 3 days. By LMP: 09/12/2025. ESTIMATED DATE OF DELIVERY: By Ultrasound: 6 weeks 4 days. By LMP: 09/11/2025 US/Transvaginal w/Preg US IMPRESSION: Single live intrauterine . Details above. Reading Location: [place] [address]
[2025-01-20 15:20] LABS: Bacteria 0 SEEN /hpf (None Seen); Mucous, Urine 0 SEEN /hpf (<or=2+)
[2025-01-20 15:26] LABS: Hematocrit 39.9 % (37-47); Hemoglobin 13.7 g/dL (12.0-15.0)
[2025-01-20 15:50] LABS: hCG Titer Quant., Serum 7332 mIU/mL (<9 non-preg)
[2025-01-20 15:54] VITALS: BP 124/52; PULSE 92; RESP 16; O2SAT 100
[2025-01-20 15:59] LABS: Color, Urine Amber (Yellow); Glucose, Dipstick Normal (Normal); Ketone-Dipstick Negative (Negative); Leukocyte Esterase-Dipstick 25 /ul (Negative); Nitrite-Dipstick Negative (Negative); Occult Blood-Urine 250 /ul (Negative); Protein-Dipstick 30 mg/dl (Negative); Urine Bilirubin Dipstick Negative (Negative); Urine Clarity Sl. Cloudy (Clear); Urine Urobilinogen Normal (Normal)
[2025-01-20 16:58] VITALS: BP 123/55; PULSE 97; RESP 14; TEMP 36.6; O2SAT 99
--- NOTE | 2025-01-20 16:59 | ED.RN ---
1620: LAB CALLED FOR OUTSTANDING URINE RESULTS. RESPONSE WE ARE WORKING ON A FEW OF THEM
[2025-01-20 17:29] LABS: Bedside Glucose 87 mg/dL (74-106)
[2025-01-20 17:48] LABS: Red Blood Cells-Urine 10-25 SEEN /hpf (0-5); White Blood Cells 0-5 SEEN /hpf (0-5)
[2025-01-20 17:49] LABS: Squamous Epithelial Cells - UA 0-5 SEEN /hpf (5-10)
== END 2025-01-20 17:10 | disposition home or self-care (01) ==
PROVIDERS: Emergency Provider Emergency Medicine; PCP Family Medicine; Visit Provider Emergency Medicine
DX: O20.0 Threatened abortion (principal); Z3A.01 Less than 8 weeks gestation of pregnancy; Z90.49 Acquired absence of other specified parts of digestive tract
CPT/HCPCS: 76817; 81001; 82962; 84702; 85014; 85018; 99283; A4216

== ENCOUNTER → 2025-01-23 | Outpatient (CLI) | payer OTHER, SELFPAY ==
[2025-01-23 16:21] LABS: hCG Titer Quant., Serum 646 mIU/mL (<9 non-preg)
== END | disposition home or self-care (01) ==
PROVIDERS: Advanced Practice Midwife; PCP Family Medicine; Referring Provider Obstetrics & Gynecology; Visit Provider Obstetrics & Gynecology
DX: O20.0 Threatened abortion (principal); Z3A.00 Weeks of gestation of pregnancy not specified
CPT/HCPCS: 36415; 84702

== ENCOUNTER → 2025-01-25 | Outpatient (CLI) | payer OTHER, SELFPAY ==
[2025-01-25 16:58] LABS: hCG Titer Quant., Serum 207 mIU/mL (<9 non-preg)
== END | disposition home or self-care (01) ==
LOC: BWCLAB 14:05
PROVIDERS: Advanced Practice Midwife; PCP Family Medicine; Referring Provider Obstetrics & Gynecology; Visit Provider Obstetrics & Gynecology
DX: O20.0 Threatened abortion (principal); Z3A.00 Weeks of gestation of pregnancy not specified
CPT/HCPCS: 36415; 84702

== ENCOUNTER → 2025-01-30 | Outpatient (CLI) | payer OTHER, SELFPAY ==
[2025-01-30 16:29] LABS: hCG Titer Quant., Serum 19 mIU/mL (<9 non-preg)
== END | disposition home or self-care (01) ==
LOC: BWCLAB 15:50
PROVIDERS: PCP Family Medicine; Referring Provider Advanced Practice Midwife; Visit Provider Advanced Practice Midwife
DX: O20.0 Threatened abortion (principal)
CPT/HCPCS: 36415; 84702

== ENCOUNTER → 2025-02-06 | Outpatient (CLI) | payer OTHER, SELFPAY ==
[2025-02-06 12:33] LABS: hCG Titer Quant., Serum 2 mIU/mL (<9 non-preg)
--- OUTSIDE RECORDS SUMMARY | 2025-02-06 20:49 | XMS RPT_ITS | CCD ---
Author Organization [facility] CliniSymd Care Team Providers Care Assignment Desk Assistant Name Role Phone Care Physician, No Primary Primary Care Provider Unavailable Care Physician, No Primary Referring Provider Un available JELLY Kinsey Attending Provider JELLY Kurtz Attending Provider Care Physician, No Primary Primary Care Provider Unavailable Care Physician, No Primary Referring Provider Un available JELLY Kinsey Attending Provider [phone] JELLY Kurtz Attending Provider Dr. Dudley Escalona Primary Care Provider Pola GUERRERO, Dudley eBll Unavailable Arleen Alejo MD Unavailable Crystal MARIE, Francine Castillo Unavailable [phone] Chris MARIE, Mikayla Chen Unavailable Unavailable Unavailable Care Physician, No Primary Primary Care Provider Unavailable Care Physician, No Primary Referring Provider Un available JELLY Kinsey Attending Provider [phone] Dudley Escalona Referring Provider Dr. Pina Gilmore Attending Provider Dr. Betzy Blanton Attending Provider Care Physician, No Primary Primary Care Provider Unavailable Care Physician, No Primary Referring Provider Un available JELLY Kurtz Attending Provider [phone] Dr. Betzy Blanton Admit Provider Dr. Betzy Blanton Other Provider Dr. Dudley Escalona MD Primary Care Provider Dr. Dudley Escalona MD Referring Provider Franny GUERRERO, Dr. Bo Attending Provider [phone] Dr. Gurjit Mendiola DO Emergency Provider Dr. Gurjit Mendiola DO Attending Provider Dr. Betzy Blanton MD Referring Provider Dr. Pina Gilmore DO Attending Provider Dr. Pina Gilmore DO Referring Provider Tatiana Kinsey CNM Attending Provider [phone] Tatiana Kinsey CNM Referring Provider [phone] Betzy Blanton Attending Unavailable Pola, Dudley Primary Care Unavailable Pola, Dudley Referring Unavailable Tatiana Kinsey Attending Unavailable Pola, Dudley Primary Care Unavailable Poal, Dudley Referring Unavailable Betzy Blanton Attending Unavailable Betzy Blanton Referring Unavailable Pola, Dudley Primary Care Unavailable Pina Gilmore Attending Unavailjasbir e Pina Gilmore Referring Unavailabl e Dudley Escalona Primary Care Unavailable Tatiana Kinsey Attending Unavailable Tatiana Kinsey Referring Unavailable [facility], Dudley Primary Care Unavailable Gurjit Mendiola Attending Unavailable Pola, Dudley Primary Care Unavailable Medications Current Medications Medication Drug Class(es) Dates Sig (Normalized) Sig (Original) Pnv #24-Fpmf-Jiwhn Acid-Omega3 (6 sources) Start: 03-09-2023 take 1 capsule by mouth once daily Pnv #00-Jpkx-Lxbjw Acid-Omega3 Active 1 CAP PO DAILY March 08, 2023 11:00pm Start: 03-09-2023 Pnv #30-Iron-F olic Acid-Omega3 Active CAP PO March 08, 2023 11:00pm Start: 03-09-2023 Pnv #30-Iron-F olic Acid-Omega3 Active CAP PO March 09, 2023 12:00am ritual (6 sources) Start: 01-16-2025 ritual prenata l Active PO January 16, 2025 12:00am Completed/Discontinued Medications Medication Drug Class(es) Dates Sig (Normalized) Sig (Original) acetaminophen 325 mg / oxyCODONE hydrochloride 5 mg oral tablet (8 sources) Opioid Agonist Start: 09-09-2023 End: 01-16-2025 Oxycodone-Acetamin ophen (Percocet) 5-325 mg tablet Discontinued 1 {tbl} PO EVERY 6 HOURS as needed for pain 10 September 09, 2023 January 16, 2025 3:05pm cephalexin 500 mg oral tablet (7 sources) Cephalosporin Antibacterial Start: 05-15-2011 End: 05-22-2011 take 1 tablet by mouth twice daily CEPHALEXIN, 500MG (Oral Tablet) ; 1 Tablet two times daily for 7 days Quantity: 14 {Tablet} Refills: 0 Ordered: 15-May-2011 FRANK Perez Start: 15-May-2011 End: 22-May-2011 Status: Inactive Ethinyl Estradiol / norgestimate (14 sources) Progestin, Estrogen Start: 06-01-2016 End: 11-23-2017 take 1 tablet by mouth once daily Tri-Sprintec 0.18/0.215/0.25 MG-35 MCG Oral Tablet ; 1 (one) Tablet daily for 0 days Quantity: 1 {Package} Refills: 11 Ordered: 23-Nov-2017 Start: 01-Jun-2016 End: 23-Nov-2017 Status: Inactive Start: 04-08-2016 End: 06-01-2016 take 1 tablet by mouth once daily Sprintec 28 0.25-35 MG-MCG Oral Tablet ; 1 (one) Tablet daily for 0 days Quantity: 1 {Package} Refills: 5 Ordered: 01-Jun-2016 FRANK Rojas Start: 08-Apr-2016 End: 01-Jun-2016 Status: Inactive Comments: Chuy Hernandez Comment on above: Chuy rm naproxen 500 mg oral tablet (8 sources) Nonsteroidal Anti-inflammatory Drug Start: 4 End: 5 take 1 tablet by mouth twice daily as needed for pain Naproxen 500 mg tablet Discontinued 500 mg PO TWICE DAILY NEEDED as needed for Pain September 09, 2023 1:00am January 16, 2025 3:05pm Pnv #54-Jmjk-Fevbd Acid-Omega3 30 mg iron-10 mg iron-1 mg capsule (6 sources) Start: 3 End: 5 Pnv #08-Ryxp-Fijxg Acid-Omega3 30 mg iron-10 mg iron-1 mg capsule Discontinued 1 NMA PO DAILY March 09, 2023 12:00am January 19, 2025 3:03pm Start: 03-09-2023 Pnv #30-Iron-F olic Acid-Omega3 30 mg iron-10 mg iron-1 mg capsule Active 1 NMA PO DAILY March 09, 2023 12:00am Problems Active Problems Problem Classification Problem Date Documented Da te Episodic/Chronic Abdominal pain (20 sources) Abdominal pain, generalized; Translations: [Right lower quadrant pain] 02-12-2015 Episodic Administrative/social admission (14 sources) Issue of repeat prescriptions 06-01-2016 Episodic Hemorrhage during ; abruptio placenta; placenta previa (14 sources) Threatened miscarriage; Translations: [Threatened ] Onset: 01-30-2025 01-16-2025 Episodic Malposition; malpresentation (12 sources) Breech presentation; Translations: [Maternal care for breech presentation, not applicable or unspecified] 09-10-2023 Episodic Comment on above: if WATSON normal would like to trial a version between 37-38 weeks. Mycoses (14 sources) Pityriasis versicolor; Translations: [Pityriasis versicolor] 05-15-2011 Episodic Other complications of ; puerperium affecting management of mother (8 sources) Deliveries by ; Translations: [Encounter for delivery without indication] 09-10-2023 Episodic Comment on above: SM [facility] [place] [facility] neida ech [facility] boy Other complications of ; puerperium affecting management of mother (2 sources) Encounter for delivery without indication; Translations: [ delivery, without mention of indication, delivered, with or without mention of antepartum condition] 09-12-2023 Episodic Other complications of (11 sources) Rubella non-immune; Translations: [Supervision of other high risk pregnancies, unspecified trimester] 04-07-2023 Episodic Comment on above: offer MMR offer MMR - pt did not get vaccinated after last Other complications of (20 sources) Supervision of other high risk pregnancies, unspecified trimester; Translations: [Other specified complications of , antepartum condition or complication] 04-07-2023 Episodic Other complications of (9 sources) Fundal height high for dates; Translations: [Uterine size-date discrepancy, unspecified trimester] 09-02-2023 Episodic Comment on above: growth us ordered Other complications of (10 sources) Uterine size-date discrepancy, unspecified trimester; Translations: [Uterine size date discrepancy, antepartum condition or complication] 08-18-2023 Episodic Other complications of (8 sources) Reduced movement; Translations: [Decreased movements, third trimester, not applicable or unspecified] 09-10-2023 Episodic Other complications of (2 sources) Decreased movements, third trimester, not applicable or unspecified; Translations: [Decreased movements, affecting management of mother, antepartum condition or complication] 09-12-2023 Episodic Other complications of (5 sources) High risk ; Translations: [Supervision of high risk , unspecified, unspecified trimester] 01-19-2025 Episodic Comment on above: , LANCE 09/04/25, P Irina Solis, Roger Other female genital disorders (14 sources) History of gynecological disorder; Translations: [Personal history of other diseases of the female genital tract] 03-20-2016 Episodic Other and delivery including normal (20 sources) Normal ; Translations: [Encounter for supervision of normal first , unspecified trimester] 03-09-2023 Episodic Comment on above: PRR LANCE 10/04/23 boy C(K)andrew Roger NIPT low risk teresa r and ntd declined, anatomy nl, nl GCT Discussed NIPT Polyhydramnios and other problems of amniotic cavity (10 sources) Oligohydramnios; Translations: [Oligohydramnios, third trimester, not applicable or unspecified] 09-10-2023 Episodic Comment on above: watson 3.5 cm upon revi crystal images recommend immediate delivery 36 weeks Residual codes; unclassified (9 sources) Tetanus diphtheria and acellular pertussis vaccination declined; Translations: [Immunization not carried out because of patient refusal] 09-02-2023 Episodic Residual codes; unclassified (3 sources) Immunization not carried out because of patient refusal; Translations: [Vaccination not carried out because of patient refusal] 08-18-2023 Episodic Spontaneous (3 sources) Miscarriage; Translations: [Complete or unspecified spontaneous without complication] 01-30-2025 Episodic Superficial injury; contusion (14 sources) Superficial foreign body (splinter) of finger(s), without major open wound and without mention of infection 05-15-2011 Episodic Unclassified (7 sources) Abdominal pain - The onset of the abdominal pain has been acute and has been occurring in an intermittent pattern for 10 months. The course has been recurrent. The pain is described as a moderate dull ache. The pain is located in the right lower quadrant and radiates to the back (right and left). The symptoms are aggravated by motion but have no relieving factors. The symptoms have been associated with fever (rarely), while the symptoms have not been associated with constipation, diarrhea, dysuria, nausea or vomiting. Previous evaluations have included CT scan. Note for Abdominal pain: LMP was approximately 02/18/16. Patents periods are regular and are not heavy or painful. Pt. saw LEB 02/12/15 with c/o abdominal pain. Pt. was evaluated here, but then was sent to E.R. to r/o an appy. Pt. was told she had an ovarian cyst. 03-15-2016 Unclassified (5 sources) call on Wednesday to schedule follow up to be seen next week Past or Other Problems Problem Classification Problem Date Documented Da te Episodic/Chronic Unclassified (7 sources) Abdominal pain - The onset of the abdominal pain has been gradual and has been occurring in a persistent pattern for 7 hours. The course has been constant. The pain is described as a moderate (has had some periods of severe pain) sharp pain (sometimes, mostly a throbbing pain). The pain is located in the entire abdomen (mostly the pain is located in the lower part of the abdomen and epigastrium area. ). The symptoms are aggravated by meals (1/2 to 1 hour after eating) but have no relieving factors. The symptoms have been associated with nausea, while the symptoms have not been associated with bloating, constipation, dark urine, dysuria or vomiting. Note for Abdominal pain: not as bad as it was but is still sore all over her body; back hurts bilateral; no UTI sx; no fever; no vomitting but has had nausea. Ate some honeycombs for breakfast but nothing since. No new rashes. NO URI sx or cough. Last BM this AM (normal).No sick contacts. LMP 2-3 weeks ago and denies chance for 02-12-2015 Unclassified (7 sources) splinter undernail - Pt is here with c/o of a splinter under her nail on the middle finger of her right hand. Occurred last night when paneling the house. Are sure that the splinter is a piece of wood. Finger is tender and sore. Her parents say that they tried to remove it last night but it broke off. No fever. No drainage from the nail. 05-15-2011 Results Test Name Value Interpretation Reference Range Facility Rubber Engraver Office Visit Reporton 01-30-2025 Rubber Engraver Office Visit Report [facility] [address] [place] [address], [address] [place] [address] OFFICE VISIT Date of Service: 01/30/25 MR#: [id number] Acct: [id number] Name: BETZY WORTHY Rep #: [id number] : 2000 Provider: JELLY Alcaraz ams Age/Sex: 24/F [place] [facility] [place] Status: Signed Intake Vital Signs 01/16/25 15:03 01/20/25 14:26 01/30/25 15:50 01/30/25 15:52 Height 5 ft 3 in 5 ft 3 in 5 ft 3 in 5 ft 3 in Weight: 139 lb 4 oz BMI 24.6 BP 126/73 H Intake Visit Reasons: 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: No Is patient in pain?: No Allergies No Known Allergies Allergy (Verified 01/30/25 15:51) Medications ???Medication ???Instructions ???Recorded ???Confirmed ???Type ritual PO 01/16/25 01/30/25 History Is last menstrual period known: Yes Last Menstrual Period: 12/05/24 Post menopausal: No : No PFSH Medical History Oligohydramnios History of ovarian cyst Surgical History delivery delivered S/P appendectomy Family History Grandfather Heart disease Maternal Paternal Social History adopted: No household members: spouse housing: house number of children: 1 service: No current occupational status: unemployed current occupation: [employer] pets and animals: Yes pets and animals: dog(s) history of recent travel: No sexually active: Yes Smoking Status: Never smoker alcohol intake: never substance use type: does not use well-balanced diet: daily or most days caffeine: Yes Type: coffee Number of servings: 1 eating out: rarely or never during the past year weight has: remained stable what type of physical activity do you participate in: none irving/baptist: Anabaptist seatbelt use: always do you feel safe at home: Yes 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 Quant is decreasing-7332,646, 207. additional quant drawn today. Still having vaginal bleeding although it is becoming light in flow. Denies fever, chills, foul odor. No gestational sac noted on US today. If still having bleeding by 02/05 or quant not returning to nl levels by next week will consider formal US. Female Reproductive History Last Menstrual Period: 12/05/24 History 2 Elective abortions Hx Para 1 Spontaneous abortions Hx # Term Pregnancies 1 Ectopic pregnancies Hx # Pregnancies Multiple births # of living children 1 Past Pregnancies Del. Date Name GA/Weeks Outcome Route Bth Weight Gen Labor Lgth Anesthesia Del Locatn Provider FOB 09/09/23 [facility] 36 live - full term 5#7oz Male spinal [facility] Ma rcanthony Roger Delivery Date: 09/09/23 Last Updated by: Yudy Carranza [facility] [place] Breech ROS Const Constitutional: Reports system reviewed and no additional complaints, except as documented Cardio Card: Reports system reviewed and no additional complaints, except as documented Resp Resp: Reports system reviewed and no additional complaints, except as documented GI GI: Reports system reviewed and no additional complaints, except as documented : Reports system reviewed and no additional complaints, except as documented; Denies difficulty voiding, dysuria or urinary frequency Skin Skin/Breast: Reports system reviewed and no additional complaints, except as documented Neuro Neuro: Reports system reviewed and no additional complaints, except as documented Psych Psych: Reports system reviewed and no additional complaints, except as documented Exam Const General: cooperative, healthy appearing, comfortable and no acute distress Resp Effort Inspection: normal respiratory effort, able to speak in complete sentences and symmetric chest movement GI Inspection: normal to inspection Palpation: soft External Female Exam: normal external appearance and normal appearance of the urethra Urethra: normal appearance of the urethra Neuro General: patient alert, patient awake and patient oriented x3 Cognition: normal cognition Speech: speech normal Gait: normal gait Psych Appearance: grossly normal and well kempt Mental Status: mental status grossly normal Affect: normal affect Speech and Movement: speech and movement normal Attitude: cooperative Thought Process: normal Thought Content: normal Judgment: judgment good Coding Level of Care Code Off vis,est,level 3 Diagnoses SAB (spontaneous ) O03.9 Assessment and Plan (more content not included)... Normal [facility] Serum human chorionic gonado tropin detection for pregnancyOrdered By: Tatiana Kinsey on 01-30-2025 HCG ( test) Ql 19 mIU/mL High <9 [facility] Comment on above: Gestational Age0.2-1 Week: 5-50 mIU/mL1-2 Weeks: 50-500 mIU/mL2-3 Weeks: 100-5000 mIU/mL3-4 Weeks: 500-10,000 mIU/mL4-5 Weeks:1000-50,000 mIU/mL5-6 Weeks: 10,000-100,000 mIU/mL6-8 Weeks: 15,000-200,000 mIU/mL2-3 Months:10,000-100,000 mIU/mL hCG Titer Quant., Serumon HCG QUANT. 19 mIU/mL High <9 non-preg [facility] Comment on above: Result Comment: Gest ational Age 0.2-1 Week: 5-50 mIU/mL 1-2 Weeks: 50-500 mIU/mL 2-3 Weeks: 100-5000 mIU/mL 3-4 Weeks: 500-10,000 mIU/mL 4-5 Weeks:1000-50,000 mIU/mL 5-6 Weeks: 10,000-100,000 mIU/mL 6-8 Weeks: 15,000-200,000 mIU/mL 2-3 Months:10,000-100,000 mIU/mL Performed By: #### L 900.1137 #### [facility] [address] [place], [place], [id number] Serum human chorionic gonado tropin detection for pregnancyOrdered By: Tatiana Kinsey on 01-25-2025 HCG ( test) Ql 207 mIU/mL High <9 [facility] Comment on above: Gestational Age0.2-1 Week: 5-50 mIU/mL1-2 Weeks: 50-500 mIU/mL2-3 Weeks: 100-5000 mIU/mL3-4 Weeks: 500-10,000 mIU/mL4-5 Weeks:1000-50,000 mIU/mL5-6 Weeks: 10,000-100,000 mIU/mL6-8 Weeks: 15,000-200,000 mIU/mL2-3 Months:10,000-100,000 mIU/mL hCG Titer Quant., Serumon HCG QUANT. 207 mIU/mL High <9 non-preg [facility] Comment on above: Result Comment: Gest ational Age 0.2-1 Week: 5-50 mIU/mL 1-2 Weeks: 50-500 mIU/mL 2-3 Weeks: 100-5000 mIU/mL 3-4 Weeks: 500-10,000 mIU/mL 4-5 Weeks:1000-50,000 mIU/mL 5-6 Weeks: 10,000-100,000 mIU/mL 6-8 Weeks: 15,000-200,000 mIU/mL 2-3 Months:10,000-100,000 mIU/mL Performed By: #### L 700.8000 #### [facility] [address] [place], [place], [id number] Serum human chorionic gonado tropin detection for pregnancyOrdered By: Tatiana Kinsey on 01-23-2025 HCG ( test) Ql 646 mIU/mL High <9 [facility] Comment on above: Gestational Age0.2-1 Week: 5-50 mIU/mL1-2 Weeks: 50-500 mIU/mL2-3 Weeks: 100-5000 mIU/mL3-4 Weeks: 500-10,000 mIU/mL4-5 Weeks:1000-50,000 mIU/mL5-6 Weeks: 10,000-100,000 mIU/mL6-8 Weeks: 15,000-200,000 mIU/mL2-3 Months:10,000-100,000 mIU/mL hCG Titer Quant., Serumon HCG QUANT. 646 mIU/mL High <9 non-preg [facility] Comment on above: Result Comment: Gest ational Age 0.2-1 Week: 5-50 mIU/mL 1-2 Weeks: 50-500 mIU/mL 2-3 Weeks: 100-5000 mIU/mL 3-4 Weeks: 500-10,000 mIU/mL 4-5 Weeks:1000-50,000 mIU/mL 5-6 Weeks: 10,000-100,000 mIU/mL 6-8 Weeks: 15,000-200,000 mIU/mL 2-3 Months:10,000-100,000 mIU/mL Performed By: #### L 700.8000 #### [facility] [address] [facility] [place], [address] Bedside Glucoseon 01-20-2025 FINGERSTICK GLU 87 mg/dL Normal 74-106 [facility] Comment on above: Result Comment: JUNIOR GEMENT OF PATIENT CARE PER NURSING PROTOCOL Performed By: #### L 501.080 #### [facility] [address], [address] Bilirubin Test strip Ql (U)O rdered By: Gurjit Mendiola on 01-20-2025 Bilirubin Ql (U) Negative Negative [facility] Emergency Department Summary on 01-20-2025 Emergency Department Summary [facility] Medical Records Department [address] [place] [address] Emergency Department Summary 01/20/25 MR#: [id number] Acct: [id number] Name: BETZY WORTHY Rep #: [id number] : 2000 24 From: Gurjit Mendiola DO PCP: Dr. Dudley Escalona MD Status:DEP ER Location: ED HPI HPI - Female History of Present Illness Chief Complaint: Vag Bld, Preg Informant: patient and spouse/S.O. Associated Symptoms P: 1 Narrative Narrative: 24-year-old female presenting to the emergency room with first trimester vaginal bleeding. Patient is at about 7 weeks. She states that this week she was seen on Wednesday by CHURN OPERATOR MARGARINE with 1 day history of vaginal bleeding. She states there was an ultrasound that showed a heart rate. She was put on pelvic rest. She states that today she noticed heavier bleeding than normal with some clots and and slight increase in the cramping. No reported fevers. She notes first was unremarkable to about 36 weeks and when she ended up needing a due to oligohydramnios. Patient is a positive by chart review at this institution. [facility] Medical History Oligohydramnios History of ovarian cyst Home Medications ???Medication ???Instructions ???Recorded ???Last Taken ???Type ritual PO 01/16/25 Unknown History Allergy/AdvReac Type Severity Reaction Status Date / Time No Known Allergies Allergy Verified 01/19/25 15:03 Family History Grandfather Heart disease Maternal Paternal Surgical History delivery delivered S/P appendectomy Social History adopted: No household members: spouse housing: house number of children: 1 current occupational status: unemployed current occupation: [employer] pets and animals: Yes pets and animals: dog(s) history of recent travel: No sexually active: Yes Smoking Status: Never smoker alcohol intake: never substance use type: does not use well-balanced diet: daily or most days caffeine: Yes Type: coffee Number of servings: 1 eating out: rarely or never during the past year weight has: remained stable what type of physical activity do you participate in: none irving/baptist: Anabaptist seatbelt use: always do you feel safe at home: Yes 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 ROS ROS ED Constitutional Constitutional ED: Denies chills or weight loss Eyes Eyes: Denies change in vision or diplopia ENT ENT ED: Denies ear pain, rhinorrhea or sore throat Cardiovascular Cardiovascular: Denies chest pain, orthopnea, palpitations or racing heartbeat Respiratory/Chest Respiratory/Chest: Denies cough, dyspnea or orthopnea Gastrointestinal Gastrointestinal: Denies abdominal pain, diarrhea, nausea or vomiting Genitourinary Genitourinary ED: Reports other Details: See history of present illness-vaginal bleeding pelvic cramping ; Denies dysuria, hematuria or urinary frequency Musculoskeletal Musculoskeletal: Denies arthralgias or myalgias Integumentary Denies abscess or rash Neurologic Neurologic: Denies headache(s) or weakness Psychiatric Psychiatric: Denies anxiety, depression, suicidal ideation or suicidal thoughts Endocrine Endocrinology: Denies polydipsia, polyphagia or polyuria Allergic/Immunologic Allergic/Immunologic ED: Denies mouth swelling, tongue swelling or urticaria EXAM Physical Exam Const Vital Signs: 01/20/25 14:26 01/20/25 15:54 01/20/25 16:58 Temperature 98.0 F 98 F Temperature Source Oral Pulse Rate 92 92 97 Respiratory Rate 16 16 14 Blood Pressure 125/69 H 124/52 H 123/55 H Blood Pressure Mean 87 76 77 Pulse Ox 100 100 99 Oxygen Delivery Method Room Air Room Air Positive well nourished and well developed General Appearance ED: well developed and NAD HEENT Reports normocephalic, head/scalp atraumatic and moist mucous membranes Eyes PERRL and EOMs intact bilaterally Neck no lymphadenopathy, supple and no JVD Resp normal respiratory effort and clear to auscultation bilaterally Cardio regular rate, regular rhythm and no murmurs GI normal to inspection, nondistended, normoactive bowel sounds and non-tender Palpation: soft Back/Spine no CVA tenderness and normal ROM Extremity normal to inspection General Extremety ED: Negative for edema General Extremity: Negative for edema Neuro oriented x3 and CN's II-XII intact bilaterally Sensorium / Orientation: alert Motor Exam: strength 5/5 throughout Psych mental status grossly normal Mood Affect: Negative for depressed or tearful Skin no rashes or lesions noted and no (more content not included)... Normal [facility] Glucose measurement at [facility] [facility] deOrdered By: Gurjit Mendiola on 01-20-2025 Glucose [Mass/Vol] 87 mg/dL 74-106 [facility] Comment on above: MANAGEMENT OF PATIEN T CARE PER NURSING PROTOCOL HH, Hemoglobin AND Hematocri ton 01-20-2025 Hematocrit (Bld) [Volume fraction] 39.9 % Normal 37-47 [facility] Comment on above: Performed By: #### L 100.0600, L700.8000 #### [facility] [address] [place], [address] Hemoglobin (Bld) [Mass/Vol] 13.7 g/dL Normal 12.0-15.0 [facility] Comment on above: Performed By: #### L 100.0600, L700.8000 #### [facility] [address] [place], [address] Hematocrit Auto (Bld) [Volum e fraction]Ordered By: Gurjit Mendiola on 01-20-2025 Hematocrit (Bld) [Volume fraction] 39.9 % 37-47 [facility] Hemoglobin measurementOrdere d By: Gurjit Mendiola on 01-20-2025 Hemoglobin (Bld) [Mass/Vol] 13.7 g/dL 12.0-15.0 [facility] Ketones Test strip Ql (U)Ord ered By: Gurjit Mendiola on 01-20-2025 Ketones Ql (U) Negative Negative [facility] Microscopic analysis of urin e for red blood cells (RBC)Ordered By: Gurjit Mendiola on 01-20-2025 Microscopic analysis of urine for red blood cells (RBC) 10-25 SEEN /hpf 0-5 [facility] Mucus LM Ql (Urine sed)Order ed By: Gurjit Mendiola on 01-20-2025 Mucus Ql (Urine sed) 0 SEEN /hpf [facility] Nitrite Test strip Ql (U)Ord ered By: Gurjit Mendiola on 01-20-2025 Nitrite Ql (U) Negative Negative [facility] Protein Test strip Ql (U)Ord ered By: Gurjit Mendiola on 01-20-2025 Protein Ql (U) 30 mg/dl High Negative [facility] Serum human chorionic gonado tropin detection for pregnancyOrdered By: Gurjit Mendiola on 01-20-2025 HCG ( test) Ql 7332 mIU/mL High <9 [facility] Comment on above: Gestational Age0.2-1 Week: 5-50 mIU/mL1-2 Weeks: 50-500 mIU/mL2-3 Weeks: 100-5000 mIU/mL3-4 Weeks: 500-10,000 mIU/mL4-5 Weeks:1000-50,000 mIU/mL5-6 Weeks: 10,000-100,000 mIU/mL6-8 Weeks: 15,000-200,000 mIU/mL2-3 Months:10,000-100,000 mIU/mL Squamous epithelial cells de tection in urine sediment by light microscopyOrdered By: Gurjit Mendiola on 01-20-2025 Epithelial cells.squamous LM Ql (Urine sed) 0-5 SEEN /hpf 5-10 [facility] Transvaginal w/Preg USon Transvaginal w/Preg US [facility] Imaging Services [address], [place] [address] Transvaginal w/Preg US MR#: [id number] Acct: [id number] Name: BETZY WORTHY Rep #: [id number] : 2000 F 24 From: Immanuel Ramos MD PCP: Dr. Dudley Escalona MD Status: [facility] Study: Transvaginal w/Preg US Date of Exam: 01/20/25 Exam# [id number] Ordering Dr: Gurjit Mendiola DO PROCEDURE: TRANSVAGINAL W/PREG US 01/20/2025 REASON FOR EXAM: FIRST TRIMESTER BLEEDING TECHNIQUE: Transabdominal and transvaginal. COMPARISON: None. FINDINGS: Number of Gestational Sacs: 1 Gestational Sac Shape: Normal Number of Fetuses: 1 Heart Rate: 119 (average) Survey of Visible Anatomic Structures: Grossly unremarkable for gestational age. Yolk Sac: Present and unremarkable. Placenta: Presently not well-visualized Amniotic Fluid Volume: Subjectively normal for gestational age. Uterine Abnormalities: Maternal uterus is unremarkable. Ovaries / Adnexa: Both maternal ovaries are visualized and unremarkable. Mild to moderate fluid in the cul-de-sac. DIMENSIONS: Parameter Measurement / EGA Seltzer Rump Length: 7 weeks and 0 days./ Gestational Sac: 13 x 12 x 5 mm (small)/ ESTIMATED GESTATIONAL AGE: By Ultrasound: 6 weeks 3 days. By LMP: 09/12/2025. ESTIMATED DATE OF DELIVERY: By Ultrasound: 6 weeks 4 days. By LMP: 09/11/2025 US/Transvaginal w/Preg US IMPRESSION: Single live intrauterine . Details above. Reading Location: [id number] CC: Dr. Gurjit Mendiola DO; Dr. Dudley Escalona MD Supervisor Yard: Signed Normal [facility] Urinalysis, Completeon 01-20 EPI,SQUAMOUS 0-5 SEEN Normal 5-10 [facility] Comment on above: Order Comment: COLOR OF URINE MAY AFFECT DIPSTICK RESULTS. CLEAN CATCH Performed By: #### L 400.0001 #### [facility] [address] [place], [address] RBC 10-25 SEEN Normal 0-5 [facility] Comment on above: Order Comment: COLOR OF URINE MAY AFFECT DIPSTICK RESULTS. CLEAN CATCH Performed By: #### L 400.0001 #### [facility] [address] [place], [address] WBC 0-5 SEEN Normal 0-5 [facility] Comment on above: Order Comment: COLOR OF URINE MAY AFFECT DIPSTICK RESULTS. CLEAN CATCH Performed By: #### L 400.0001 #### [facility] [address] [place], [address] BACTERIA 0 SEEN Normal None Seen [facility] Comment on above: Order Comment: COLOR OF URINE MAY AFFECT DIPSTICK RESULTS. CLEAN CATCH Performed By: #### L 400.0001 #### [facility] [address] [place], [address] Mucus Ql (Urine sed) 0 SEEN Normal [facility] Comment on above: Order Comment: COLOR OF URINE MAY AFFECT DIPSTICK RESULTS. CLEAN CATCH Performed By: #### L 400.0001 #### [facility] [address] [place], [address] Urine clarityOrdered By: Tio Mendiola on 01-20-2025 Clarity (U) Sl. Cloudy Clear [facility] Urine color determinationOrd ered By: Gurjit Mendiola on 01-20-2025 Color (U) Rosie Yellow [facility] Urine glucose detectionOrder ed By: Gurjit Mendiola on 01-20-2025 Glucose Ql (U) Normal mg/dl Normal [facility] Urine leukocyte esterase det ection by dipstickOrdered By: Gurjit Mendiola on 01-20-2025 Leukocyte esterase Test strip Ql (U) 25 /ul High Negative [facility] Urine pHOrdered By: Gurjit zhou on 01-20-2025 pH (U) 6.0 [pH] 5.0 - 8.0 [facility] Urine sediment bacteria coun t by microscopy (number/high power field)Ordered By: Gurjit Mendiola on 01-20-2025 Bacteria LM.HPF (Urine sed) [#/Area] 0 /[HPF] None Seen [facility] Urine specific gravity measu rementOrdered By: Gurjit Mendiola on 01-20-2025 Specific gravity (U) [Rel density] 1.010 1.002-1.030 [facility] Urine urobilinogen measureme ntOrdered By: Gurjit Mendiola on 01-20-2025 Urobilinogen Ql (U) Normal mg/dl Normal [facility] White blood cell countOrdere d By: Gurjit Mendiola on 01-20-2025 White blood cell count 0-5 SEEN /hpf 0-5 [facility] hCG Titer Quant., Serumon HCG QUANT. 7332 mIU/mL High <9 non-preg [facility] Comment on above: Result Comment: Gest ational Age 0.2-1 Week: 5-50 mIU/mL 1-2 Weeks: 50-500 mIU/mL 2-3 Weeks: 100-5000 mIU/mL 3-4 Weeks: 500-10,000 mIU/mL 4-5 Weeks:1000-50,000 mIU/mL 5-6 Weeks: 10,000-100,000 mIU/mL 6-8 Weeks: 15,000-200,000 mIU/mL 2-3 Months:10,000-100,000 mIU/mL Performed By: #### L 100.0600, L700.8000 ####[facility] [address] [place], [address] [employer] Office Visit Reporton 01-16-2025 [employer] Office Visit Report [facility] [address], [address] [place] [address] OFFICE VISIT Date of Service: 01/16/25 MR#: [id number] Acct: [id number] Name: BETZY WORTHY Rep #: [id number] : 2000 Provider: Dr. 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 Is patient in pain?: No Allergies No Known Allergies Allergy (Verified 01/19/25 15:03) Medications ???Medication ???Instructions ???Recorded ???Confirmed ???Type ritual PO 01/16/25 01/19/25 History Is last menstrual period known: Yes Last Menstrual Period: 12/05/24 Post menopausal: No Patient : Yes : No PFSH Medical History Oligohydramnios History of ovarian cyst Surgical History delivery delivered S/P appendectomy Family History Grandfather Heart disease Maternal Paternal Social History adopted: No household members: spouse housing: house number of children: 1 current occupational status: unemployed current occupation: [employer] pets and animals: Yes pets and animals: dog(s) history of recent travel: No sexually active: Yes Smoking Status: Never smoker alcohol intake: never substance use type: does not use well-balanced diet: daily or most days caffeine: Yes Type: coffee Number of servings: 1 eating out: rarely or never during the past year weight has: remained stable what type of physical activity do you participate in: none irving/baptist: Anabaptist seatbelt use: always do you feel safe at home: Yes 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 LMP- 12/05/24. first positive test 01/04/25. early seen measuring consistent with LMP. positive FHT seen. Female Reproductive History Last Menstrual Period: 12/05/24 History 2 Elective abortions Hx Para 1 Spontaneous abortions Hx # Term Pregnancies 1 Ectopic pregnancies Hx # Pregnancies Multiple births # of living children 1 Past Pregnancies Del. Date Name GA/Weeks Outcome Route Bth Weight Gen Labor Lgth Anesthesia Del Locatn Provider FOB 09/09/23 [facility] 36 live - full term 5#7oz Male spinal [facility] rcanthony Roger Delivery Date: 09/09/23 Last Updated by: Yudy Carranza LT [place] ROS Const Constitutional: Reports as per HPI; Denies fever(s) ENT ENT: Reports system reviewed and no additional complaints, except as documented Cardio Card: Reports system reviewed and no additional complaints, except as documented Resp Resp: Reports system reviewed and no additional complaints, except as documented GI GI: Reports as per HPI : Reports as per HPI Musc Musc: Reports system reviewed and no additional complaints, except as documented Skin Skin/Breast: Reports system reviewed and no additional complaints, except as documented Neuro Neuro: Reports system reviewed and no additional complaints, except as documented Endo Endo: Reports system reviewed and no additional complaints, except as documented Exam Const General: healthy appearing, comfortable and no acute distress HENMT Head: normal to inspection and normocephalic Neck Neck: no lymphadenopathy noted Thyroid: thyroid normal Chest Chest palpation inspection: normal inspection of the chest Resp Effort Inspection: normal respiratory effort Cardio Rate: regular rate Rhythm: regular rhythm GI Inspection: normal to inspection Palpation: soft and nontender External Female Exam: normal external appearance Speculum Exam - Vagina: normal appearance of the vagina and vaginal bleeding Bimanual Exam- Vagina Uterus: uterine shape normal and non-tender OB/External Speculum: vaginal bleeding Speculum Exam: vaginal bleeding Skin General: no rashes or lesions noted Neuro General: no focal motor deficits Extrem General: normal to inspection and no pedal edema Psych Appearance: grossly normal Coding Level of Care Code No Charge Diagnoses Z34.90 Threatened O20.0 Assessment and Plan Assessment and Plan (1) : Status: Acute Comment: Discussed NIPT (2) Threatened : Status: Acute Plan routine fu re (more content not included)... Normal [facility] Basophil percentageOrdered B y: Betzy Blanton on 09-10-2023 Hemoglobin (Bld) [Mass/Vol] 10.7 g/dL 12.0-15.0 [facility] WBC (Bld) [#/Vol] 11.4 10*3/uL 4.4-11.0 [facility] Determination of erythrocyte mean corpuscular volume (MCV)Ordered By: Betzy Blanton on 09-10-2023 MCV (RBC) [Entitic vol] 93.3 fL 81-99 [facility] Erythrocyte distribution wid th ratioOrdered By: Betzy Blanton on 09-10-2023 Erythrocyte distribution width (RBC) [Ratio] 13.0 % 11.6-14.6 [facility] Erythrocyte distribution wid th standard deviationOrdered By: Betzy Blanton on 09-10-2023 Erythrocyte distribution width (RBC) [Entitic vol] 44.1 fL 35.1-43.9 [facility] Hematocrit Auto (Bld) [Volum e fraction]Ordered By: Betzy Blanton on 09-10-2023 Hematocrit (Bld) [Volume fraction] 32.0 % 37-47 [facility] - Hematology and Cell countsOrdered By: Betzy Blanton on 09-10-2023 MCH (RBC) [Entitic mass] 31.2 pg 27.0-32.0 [facility] MCHC (RBC) [Mass/Vol] 33.4 g/dL 32-36 [facility] Platelets (Bld) [#/Vol] 203 10*3/uL 150-450 [facility] Platelet mean volume Td-Ec ker (Bld) [Entitic vol]Ordered By: Betzy Blanton on 09-10-2023 Platelet mean volume (Bld) [Entitic vol] 10.6 fL 6.2-12.0 [facility] RBC Auto (Bld) [#/Vol]Ordere d By: Betzy Blanton on 09-10-2023 RBC (Bld) [#/Vol] 3.43 10*6/uL 4.2-5.4 [facility] Absolute lymphocyte countOrd ered By: Betzy Blanton on 09-09-2023 Lymphocytes Auto (Unsp spec) [#/Vol] 1.64 10*3/uL 0.83-4.51 [facility] Automated lymphocyte count a s percentage of total leukocytesOrdered By: Betzy Blanton on 09-09-2023 Lymphocytes/100 WBC Auto (Unsp spec) 18.9 % 19-41 [facility] Basophil percentageOrdered B y: Betzy Blanton on 09-09-2023 Basophils/100 WBC (Bld) 0.6 % 0-1 [facility] Eosinophils/100 WBC (Bld) 0.9 % 0-5 [facility] Monocytes/100 WBC (Bld) 6.8 % 0-10 [facility] Neutrophils (Bld) [#/Vol] 6.2 10*3/uL 2.0-7.7 [facility] Neutrophils/100 WBC (Bld) 71.5 % 47-70 [facility] Immature granulocytes/100 WB C Auto (Bld)Ordered By: Betzy Blanton on 09-09-2023 Immature granulocytes/100 WBC (Bld) 1.300 % 0.0-0.9 [facility] Comment on above: IG% - Immature Granu locytes (promyelocytes, myelocytes and metamyelocytes) > 1% indicates that a LEFT SHIFT is Present. Laboratory - Chemistry and C hemistry - challengeon 09-09-2023 Glucose Ql (U) Negative [facility] - Hematology and Cell countsOrdered By: Betzy Blanton on 09-09-2023 Nucleated RBC/100 WBC (Bld) [Ratio] 0 % 0-5 [facility] - Urinalysison Protein Ql (U) Negative [facility] No Panel InformationOrdered By: Haritha Kurtz on 09-09-2023 Group B Streptococcus Culture Group B Beta Streptococcus is not isolated. [facility] Serum Treponema species anti body detectionOrdered By: Betzy Blanton on 09-09-2023 Treponema sp Ab Ql (S) Non-Reactive [facility] - Chemistry and C hemistry - challengeon 09-02-2023 Glucose Ql (U) Negative [facility] - Urinalysison Protein Ql (U) Negative [facility] - Chemistry and C hemistry - challengeon 08-18-2023 Glucose Ql (U) Negative [facility] - Urinalysison Protein Ql (U) Negative [facility] - Chemistry and C hemistry - challengeon 08-06-2023 Glucose Ql (U) Negative [facility] - Urinalysison Protein Ql (U) Negative [facility] - Chemistry and C hemistry - challengeon 07-22-2023 Glucose Ql (U) Negative [facility] - Urinalysison Protein Ql (U) Trace [facility] Absolute lymphocyte countOrd ered By: Tatiana Kinsey on 07-07-2023 Lymphocytes Auto (Unsp spec) [#/Vol] 1.39 10*3/uL 0.83-4.51 [facility] Basophil percentageOrdered B y: Tatiana Kinsey on 07-07-2023 Basophils/100 WBC (Bld) 1.0 % 0-1 [facility] Eosinophils/100 WBC (Bld) 1.0 % 0-5 [facility] Neutrophils (Bld) [#/Vol] 5.0 10*3/uL 2.0-7.7 [facility] Neutrophils/100 WBC (Bld) 70.8 % 47-70 [facility] WBC (Bld) [#/Vol] 7.1 10*3/uL 4.4-11.0 [facility] Blood erythrocytes count (nu mber/volume)Ordered By: Tatiana Kinsey on 07-07-2023 RBC (Bld) [#/Vol] 4.06 10*6/uL 4.2-5.4 [facility] Blood hemoglobin measurement (mass/volume)Ordered By: Tatiana Kinsey on 07-07-2023 Hemoglobin (Bld) [Mass/Vol] 12.8 g/dL 12.0-15.0 [facility] Blood lymphocytes/100 leukoc ytesOrdered By: Tatiana Kinsey on 07-07-2023 Lymphocytes/100 WBC (Bld) 19.7 % 19-41 [facility] Blood monocytes/100 leukocyt esOrdered By: Tatiana Kinsey on 07-07-2023 Monocytes/100 WBC (Bld) 6.5 % 0-10 [facility] Blood platelet mean volumeOr dered By: Tatiana Kinsey on 07-07-2023 Platelet mean volume (Bld) [Entitic vol] 10.2 fL 6.2-12.0 [facility] Determination of erythrocyte mean corpuscular volume (MCV)Ordered By: Tatiana Kinsey on 07-07-2023 MCV (RBC) [Entitic vol] 93.8 fL 81-99 [facility] Gestational diabetes screen 1-hour screen with 50g oral glucose loadOrdered By: Tatiana Kinsey on 07-07-2023 Glucose 1 Hr post 50 g glucose PO [Mass/Vol] 103 mg/dL 70-140 [facility] HIV 1 and HIV-2 antibody ass ay with HIV-1 p24 antigen detectionOrdered By: Tatiana Kinsey on 07-07-2023 HIV 1+2 Ab+HIV1 p24 Ag IA Ql Non-Reactive Nonreactive [facility] Hematocrit Auto (Bld) [Volum e fraction]Ordered By: Tatiana Kinsey on 07-07-2023 Hematocrit (Bld) [Volume fraction] 38.1 % 37-47 [facility] - Chemistry and C hemistry - challengeon 07-07-2023 Glucose Ql (U) Negative [facility] - Hematology and Cell countsOrdered By: Tatiana Kinsey on 07-07-2023 Erythrocyte distribution width (RBC) [Entitic vol] 43.9 fL 35.1-43.9 [facility] Erythrocyte distribution width (RBC) [Ratio] 12.7 % 11.6-14.6 [facility] Immature granulocytes/100 WBC (Bld) 1.000 % 0.0-0.9 [facility] Comment on above: IG% - Immature Granu locytes (promyelocytes, myelocytes and metamyelocytes) > 1% indicates that a LEFT SHIFT is Present. MCH (RBC) [Entitic mass] 31.5 pg 27.0-32.0 [facility] Nucleated RBC/100 WBC (Bld) [Ratio] 0 % 0-5 [facility] - Urinalysison Protein Ql (U) Negative [facility] MCHC Auto (RBC) [Mass/Vol]Or dered By: Tatiana Kinsey on 07-07-2023 MCHC (RBC) [Mass/Vol] 33.6 g/dL 32-36 [facility] Platelets bldOrdered By: Andrzej Kinsey on 07-07-2023 Platelets (Bld) [#/Vol] 226 10*3/uL 150-450 [facility] Serum Treponema species anti body detectionOrdered By: Tatiaan Kinsey on 07-07-2023 Treponema sp Ab Ql (S) Non-Reactive [facility] - Chemistry and C hemistry - challengeon 06-07-2023 Glucose Ql (U) Negative [facility] - Urinalysison Protein Ql (U) Negative [facility] - Chemistry and C hemistry - challengeon 05-10-2023 Glucose Ql (U) Negative [facility] - Urinalysison Protein Ql (U) Negative [facility] - Chemistry and C hemistry - challengeon 04-07-2023 Glucose Ql (U) Negative [facility] - Urinalysison Protein Ql (U) Negative [facility] Absolute lymphocyte countOrd ered By: Tatiana Kinsey on 03-09-2023 Lymphocytes Auto (Unsp spec) [#/Vol] 1.13 10*3/uL 0.83-4.51 [facility] Basophil percentageOrdered B y: Tatiana Kinsey on 03-09-2023 Basophils/100 WBC (Bld) 0.6 % 0-1 [facility] Eosinophils/100 WBC (Bld) 0.8 % 0-5 [facility] Neutrophils (Bld) [#/Vol] 4.9 10*3/uL 2.0-7.7 [facility] Neutrophils/100 WBC (Bld) 75.2 % 47-70 [facility] WBC (Bld) [#/Vol] 6.5 10*3/uL 4.4-11.0 [facility] Blood erythrocytes count (nu mber/volume)Ordered By: Tatiana Kinsey on 03-09-2023 RBC (Bld) [#/Vol] 4.62 10*6/uL 4.2-5.4 [facility] Blood hemoglobin measurement (mass/volume)Ordered By: Tatiana Kinsey on 03-09-2023 Hemoglobin (Bld) [Mass/Vol] 14.0 g/dL 12.0-15.0 [facility] Blood lymphocytes/100 leukoc ytesOrdered By: Tatiana Kinsey on 03-09-2023 Lymphocytes/100 WBC (Bld) 17.4 % 19-41 [facility] Blood monocytes/100 leukocyt esOrdered By: Tatiana Kinsey on 03-09-2023 Monocytes/100 WBC (Bld) 5.5 % 0-10 [facility] Blood platelet mean volumeOr dered By: Tatiana Kinsey on 03-09-2023 Platelet mean volume (Bld) [Entitic vol] 10.5 fL 6.2-12.0 [facility] Cervical or vagninal specime n microscopic examination by cytology stain (reported asOrdered By: Tatiana Kinsey on 03-09-2023 Cytology report Cyto stain Doc (Cvx/Vag) Comment . [facility] Comment on above: The Pap smear is a s creening test designed to aid in thedetection of premalignant and malignant conditions of theuterine cervix. It is not a diagnostic procedure andshould not be used as the sole means of detecting cervicalcancer. Both false-positive and false-negative reports dooccur. Chlamydia trachomatis rRNA d etection by probe and target amplification methodOrdered By: Tatiana Kinsey on 03-09-2023 C. trachomatis rRNA TESHA+probe Ql (Unsp spec) Negative Negative [facility] Culture, urineOrdered By: Karthikeyan Kinsey on 03-09-2023 Bacteria identified Cx Nom (U) Culture exhibits no growth. [facility] Determination of erythrocyte mean corpuscular volume (MCV)Ordered By: Tatiana Kinsey on 03-09-2023 MCV (RBC) [Entitic vol] 89.6 fL 81-99 [facility] HIV 1 and HIV-2 antibody ass ay with HIV-1 p24 antigen detectionOrdered By: Tatiana Kinsey on 03-09-2023 HIV 1+2 Ab+HIV1 p24 Ag IA Ql Non-Reactive Nonreactive [facility] Hematocrit Auto (Bld) [Volum e fraction]Ordered By: Tatiana Kinsey on 03-09-2023 Hematocrit (Bld) [Volume fraction] 41.4 % 37-47 [facility] - CytologyOrdered By: Tatiana Kinsey on 03-09-2023 Director Of Learning Cyto stain Nom (Cvx/Vag) [ID] Comment . [facility] Comment on above: Lindsay Medel, Cytot echnologist (ASCP) Laboratory - Hematology and Cell countsOrdered By: Tatiana Kinsey on 03-09-2023 Erythrocyte distribution width (RBC) [Entitic vol] 38.5 fL 35.1-43.9 [facility] Erythrocyte distribution width (RBC) [Ratio] 11.9 % 11.6-14.6 [facility] Immature granulocytes/100 WBC (Bld) 0.500 % 0.0-0.9 [facility] Comment on above: IG% - Immature Granu locytes (promyelocytes, myelocytes and metamyelocytes) > 1% indicates that a LEFT SHIFT is Present. MCH (RBC) [Entitic mass] 30.3 pg 27.0-32.0 [facility] Nucleated RBC/100 WBC (Bld) [Ratio] 0 % 0-5 [facility] - Microbiology an d Antimicrobial susceptibilityOrdered By: Tatiana Kinsey on 03-09-2023 N. gonorrhoeae DNA TESHA+probe Ql (Unsp spec) Negative Negative [facility] Comment on above: Performed at: =G - [address] [id number] Director: Alejandra Cardozo MD, Phone: [phone] Laboratory - Miscellaneous t estsOrdered By: Tatiana Kinsey on 03-09-2023 Service comment (Unsp spec) [Interp] Comment . [facility] Comment on above: This liquid based Th inPrep(R) pap test was screened withthe use of an image guided system. Service comment (Unsp spec) [Interp] . . [facility] MCHC Auto (RBC) [Mass/Vol]Or dered By: Tatiana Kinsey on 03-09-2023 MCHC (RBC) [Mass/Vol] 33.8 g/dL 32-36 [facility] No Panel InformationOrdered By: Tatiana Kinsey on 03-09-2023 Human Papillomavirus Screen Comment . [facility] Comment on above: The HPV DNA reflex c riteria were not met with this specimenresult therefore, no HPV testing was performed.Performed at: [address] [id number] Director: Alejandra Cardozo MD, Phone: [phone] Pathology report final diagnosis Narrative Comment . [facility] Comment on above: NEGATIVE FOR INTRAEP ITHELIAL LESION OR MALIGNANCY. Hepatitis B Surface Antigen Non-Reactive Nonreactive [facility] Hepatitis C Antibody Non-Reactive Nonreactive [facility] Comment on above: Non Reactive: < 0.8 Equivocal: >/= 0.8 to < 1.0 Reactive: >/= 1.0The CDC recommends that a reactive/equivocal HCV antibody result be followed up by the HCV Nucleic Acid Amplificationtest (231475) Rubella IgG Antibody Non-Reactive Nonreactive [facility] Comment on above: Antibody Results Int erpretation of Immune Status Non Reactive Presumed Non-Immune Equivocal Equivocal Reactive Presumed Immune Miscellaneous Test Comment MAILED SPECIMEN [facility] Platelets bldOrdered By: Andrzej Kinsey on 03-09-2023 Platelets (Bld) [#/Vol] 262 10*3/uL 150-450 [facility] Serum Treponema species anti body detectionOrdered By: Tatiana Kinsey on 03-09-2023 Treponema sp Ab Ql (S) Non-Reactive [facility] Laboratory - Chemistry and C hemistry - challengeon 03-12-2016 Bilirubin Ql (U) Negative Normal [employer]. Ketones Ql (U) Negative Normal [employer] pH (U) 7.0 [pH] Normal [employer] Specific gravity (U) [Rel density] 1.015 Normal [employer]. Urobilinogen Qn (U) 0.2 mg/dL Normal [employer]. Laboratory - Hematology and Cell countson 03-12-2016 Hemoglobin Ql (U) Negative Normal [employer]. Laboratory - Specimen inform ationon 03-12-2016 Appearance (U) clear Normal [employer]. Color (U) yellow Normal [employer]. Laboratory - Urinalysison Glucose Test strip (U) [Mass/Vol] Negative Normal [employer]. Leukocyte esterase Test strip Ql (U) Negative Normal [employer]. Nitrite Ql (U) Negative Normal [employer]. Protein Ql (U) Negative Normal [employer]. Vital Signs Date Time Vital Sign Value Performing Clinician Facility 01-30-2025 15:52-0400 Body height 160.[address] Dudley Escalona MD Work Phone: 1(516)[phone] [place] [address] 01-30-2025 15:50-0400 Body mass index (BMI) [Ratio] 24.6 kg/m2 Dr. Dudley Escalona MD Work Phone: 3([phone])[phone] [place] [address] 01-30-2025 15:50-0400 Body weight 63.[address] Dudley Escalona MD Work Phone: 3(142)[phone] [place] [address] 01-30-2025 15:50-0400 Diastolic blood pressure 73 mm[Hg] Dr. Dudley Escalona MD Work Phone: [facility] 01-30-2025 15:50-0400 Systolic blood pressure 126 mm[Hg] Dr. Dudley Escalona MD Work Phone: [facility] 01-20-2025 16:58-0400 Body temperature 98 [degF] Dr. Dudley Escalona MD Work Phone: [facility] 01-20-2025 16:58-0400 Diastolic blood pressure 55 mm[Hg] Dr. Dudley Escalona MD Work Phone: [facility] 01-20-2025 16:58-0400 Heart rate 97 /min Dr. Dudley Escalona MD Work Phone: 3([phone] [place] [address] 01-20-2025 16:58-0400 Respiratory rate 14 /min Dr. Dudley Escalona MD Work Phone: 3([phone])[phone] [place] [address] 01-20-2025 16:58-0400 SaO2% (BldA) [Mass fraction] 99 % Dr. Dudley Escalona MD Work Phone: 3(662)[phone] [place] [address] 01-20-2025 16:58-0400 Systolic blood pressure 123 mm[Hg] Dr. Dudley Escalona MD Work Phone: 8(395)[phone] [place] [address] 01-20-2025 14:26-0400 Body height 160.[address] Dudley Escalona MD Work Phone: 6(436)329-327157 [place] [address] 01-20-2025 14:26-0400 Body mass index (BMI) [Ratio] 23.9 kg/m2 Dr. Dudley Escalona MD Work Phone: 7(333)[phone] [place] [address] 01-20-2025 14:26-0400 Body weight 61.[address] Dudley Escalona MD Work Phone: 8(368)[phone] [place] [address] 01-16-2025 15:03-0400 Body height 160.[address] Dudley Escalona MD Work Phone: 4(628)[phone] [place] [address] 01-16-2025 15:03-0400 Body mass index (BMI) [Ratio] 24.3 kg/m2 Dr. Dudley Escalona MD Work Phone: 6(546)013-531557 [place] [address] 01-16-2025 15:03-0400 Body weight 62.[address] Dudley Escalona MD Work Phone: 1(475)[phone] [place] [address] 01-16-2025 15:03-0400 Diastolic blood pressure 81 mm[Hg] Dr. Dudley Escalona MD Work Phone: 3(879)[phone] [place] [address] 01-16-2025 15:03-0400 Systolic blood pressure 144 mm[Hg] Dr. Dudley Escalona MD Work Phone: 4(181)[phone] [place] [address] 09-12-2023 12:52-0500 Body temperature 97.3 [degF] No Primary Care Physician [facility] 09-12-2023 12:52-0500 Diastolic blood pressure 65 mm[Hg] No Primary Care Physician [facility] 09-12-2023 12:52-0500 Heart rate 81 /min No Primary Care Physician [facility] 09-12-2023 12:52-0500 Respiratory rate 16 /min No Primary Care Physician [facility] 09-12-2023 12:52-0500 SaO2% (BldA) [Mass fraction] 99 % No Primary Care Physician [facility] 09-12-2023 12:52-0500 Systolic blood pressure 120 mm[Hg] No Primary Care Physician [facility] 09-09-2023 18:10-0500 Body height 160.02 cm No Primary Care Physician [facility] 09-09-2023 18:10-0500 Body mass index (BMI) [Ratio] 27.6 kg/m2 No Primary Care Physician [facility] 09-09-2023 18:10-0500 Body weight 70.8 kg No Primary Care Physician [facility] 09-09-2023 13:28-0500 Body mass index (BMI) [Ratio] 27.3 kg/m2 No Primary Care Physician [facility] 09-09-2023 13:28-0500 Body weight 70.08 kg No Primary Care Physician [facility] 09-09-2023 13:28-0500 Diastolic blood pressure 78 mm[Hg] No Primary Care Physician [facility] 09-09-2023 13:28-0500 Systolic blood pressure 116 mm[Hg] No Primary Care Physician [facility] 09-02-2023 10:35-0500 Diastolic blood pressure 60 mm[Hg] No Primary Care Physician [facility] 09-02-2023 10:35-0500 Systolic blood pressure 120 mm[Hg] No Primary Care Physician [facility] 09-02-2023 09:58-0500 Body height 160.02 cm No Primary Care Physician [facility] 09-02-2023 09:56-0500 Body mass index (BMI) [Ratio] 27.3 kg/m2 No Primary Care Physician [facility] 09-02-2023 09:56-0500 Body weight 69.85 kg No Primary Care Physician [facility] 08-18-2023 08:51-0500 Body mass index (BMI) [Ratio] 26.4 kg/m2 No Primary Care Physician [facility] 08-18-2023 08:51-0500 Diastolic blood pressure 74 mm[Hg] No Primary Care Physician [facility] 08-18-2023 08:51-0500 Systolic blood pressure 117 mm[Hg] No Primary Care Physician [facility] 08-18-2023 08:38-0500 Body weight 67.81 kg No Primary Care Physician [facility] 08-06-2023 15:23-0500 Body mass index (BMI) [Ratio] 26.1 kg/m2 No Primary Care Physician [facility] 08-06-2023 15:23-0500 Body weight 66.84 kg No Primary Care Physician [facility] 08-06-2023 15:23-0500 Diastolic blood pressure 77 mm[Hg] No Primary Care Physician [facility] 08-06-2023 15:23-0500 Systolic blood pressure 123 mm[Hg] No Primary Care Physician [facility] 07-22-2023 11:33-0500 Body mass index (BMI) [Ratio] 25.5 kg/m2 No Primary Care Physician [facility] 07-22-2023 11:33-0500 Body weight 65.43 kg No Primary Care Physician [facility] 07-22-2023 11:33-0500 Diastolic blood pressure 72 mm[Hg] No Primary Care Physician [facility] 07-22-2023 11:33-0500 Systolic blood pressure 113 mm[Hg] No Primary Care Physician [facility] 07-07-2023 10:35-0500 Body height 160.02 cm No Primary Care Physician [facility] 07-07-2023 10:34-0500 Body mass index (BMI) [Ratio] 25.2 kg/m2 No Primary Care Physician [facility] 07-07-2023 10:34-0500 Body weight 64.52 kg No Primary Care Physician [facility] 07-07-2023 10:34-0500 Diastolic blood pressure 74 mm[Hg] No Primary Care Physician [facility] 07-07-2023 10:34-0500 Systolic blood pressure 121 mm[Hg] No Primary Care Physician [facility] 06-07-2023 10:05-0400 Body mass index (BMI) [Ratio] 24.3 kg/m2 No Primary Care Physician [facility] 06-07-2023 10:05-0400 Body weight 62.14 kg No Primary Care Physician [facility] 06-07-2023 10:05-0400 Diastolic blood pressure 74 mm[Hg] No Primary Care Physician [facility] 06-07-2023 10:05-0400 Systolic blood pressure 117 mm[Hg] No Primary Care Physician [facility] 05-10-2023 11:31-0400 Body height 160.02 cm No Primary Care Physician [facility] 05-10-2023 11:28-0400 Body mass index (BMI) [Ratio] 23.3 kg/m2 No Primary Care Physician [facility] 05-10-2023 11:28-0400 Body weight 59.87 kg No Primary Care Physician [facility] 05-10-2023 11:28-0400 Diastolic blood pressure 73 mm[Hg] No Primary Care Physician [facility] 05-10-2023 11:28-0400 Heart rate 76 /min No Primary Care Physician [facility] 05-10-2023 11:28-0400 Systolic blood pressure 121 mm[Hg] No Primary Care Physician [facility] 04-07-2023 08:00-0400 Body mass index (BMI) [Ratio] 22.1 kg/m2 No Primary Care Physician [facility] 04-07-2023 08:00-0400 Body weight 56.69 kg No Primary Care Physician [facility] 04-07-2023 08:00-0400 Diastolic blood pressure 70 mm[Hg] No Primary Care Physician [facility] 04-07-2023 08:00-0400 Systolic blood pressure 107 mm[Hg] No Primary Care Physician [facility] 03-09-2023 08:56-0400 Body height 160.02 cm No Primary Care Physician [facility] 03-09-2023 08:56-0400 Body mass index (BMI) [Ratio] 22.1 kg/m2 No Primary Care Physician [facility] 03-09-2023 08:56-0400 Body weight 56.81 kg No Primary Care Physician [facility] 03-09-2023 08:56-0400 Diastolic blood pressure 75 mm[Hg] No Primary Care Physician [facility] 03-09-2023 08:56-0400 Systolic blood pressure 122 mm[Hg] No Primary Care Physician [facility] 03-12-2016 14:52-0400 Body height 162.56 cm Dudley Escalona MD Work Phone: [employer]; [employer] 03-12-2016 14:52-0400 Body mass index (BMI) [Percentile] Per age and sex 59 % Dudley Escalona MD Work Phone: [employer]; [employer]. 03-12-2016 14:52-0400 Body mass index (BMI) [Ratio] 21.52 kg/m2 Dudley Escalona MD Work Phone: [employer]; [employer]. 03-12-2016 14:52-0400 Body surface area Derived from formula 1.6 m2 Dudley Escalona MD Work Phone: [employer] 03-12-2016 14:52-0400 Body temperature 98.5 [degF] Dudley Escalona MD Work Phone: [employer]; [employer]. Comment on above: Method: Tympanic 03-12-2016 14:52-0400 Body weight 56.88 kg Dudley Escalona MD Work Phone: [employer] 03-12-2016 14:52-0400 Diastolic blood pressure 71 mm[Hg] Dudley Escalona MD Work Phone: [employer]. Comment on above: Patient Position: Sitting; Cuff Location : Left Arm; Cuff Size: Standard 03-12-2016 14:52-0400 Heart rate 72 /min Dudley Escalona MD Work Phone: [employer]; [employer]. Comment on above: Pattern: Regular 03-12-2016 14:52-0400 Systolic blood pressure 123 mm[Hg] Dudley Escalona MD Work Phone: [employer]; [employer]. Comment on above: Patient Position: Sitting; Cuff Location : Left Arm; Cuff Size: Standard 02-12-2015 14:31-0400 Body height 162.56 cm Dudley Escalona MD Work Phone: [employer] 02-12-2015 14:31-0400 Body mass index (BMI) [Percentile] Per age and sex 46 % Dudley Escalona MD Work Phone: [employer] 02-12-2015 14:31-0400 Body mass index (BMI) [Ratio] 19.99 kg/m2 Dudley Escalona MD Work Phone: [employer] 02-12-2015 14:31-0400 Body surface area Derived from formula 1.55 m2 Dudley Escalona MD Work Phone: [employer] 02-12-2015 14:31-0400 Body weight 52.82 kg Dudley Escalona MD Work Phone: [employer]. 02-12-2015 14:31-0400 Diastolic blood pressure 73 mm[Hg] Dudley Escalona MD Work Phone: [employer]. Comment on above: Patient Position: Sitting; Cuff Location : Left Arm; Cuff Size: Standard 02-12-2015 14:31-0400 Heart rate 72 /min Dudley Escalona MD Work Phone: [employer]. Comment on above: Pattern: Regular 02-12-2015 14:31-0400 Systolic blood pressure 112 mm[Hg] Dudley Escalona MD Work Phone: [employer]. Comment on above: Patient Position: Sitting; Cuff Location : Left Arm; Cuff Size: Standard 05-15-2011 08:18-0400 Body height 154.94 cm Dudley Escalona MD Work Phone: [employer]; [employer] 05-15-2011 08:18-0400 Body mass index (BMI) [Percentile] Per age and sex 51 % Dudley Escalona MD Work Phone: [employer]; [employer]. 05-15-2011 08:18-0400 Body mass index (BMI) [Ratio] 18.14 kg/m2 Dudley Escalona MD Work Phone: [employer]; [employer]. 05-15-2011 08:18-0400 Body surface area Derived from formula 1.38 m2 Dudley Escalona MD Work Phone: [employer]; [employer]. 05-15-2011 08:18-0400 Body temperature 97.3 [degF] Dudley Escalona MD Work Phone: [employer]; [employer] Comment on above: Method: Tympanic 05-15-2011 08:18-0400 Body weight 43.55 kg Dudley Escalona MD Work Phone: [employer]; [employer] Encounters Encounter Date Encounter Type Care Provider Facility Start: 01-30-2025 End: 01-30-[address] Dudley Escalona MD Work Phone: [facility] Work Phone: Start: 01-30-2025 End: 01-30-2025 Patient encounter procedure Tatiana Kinsey [facility] Work Phone: Start: 01-30-2025 End: 01-30-2025 ambulatory Tatiana Kinsey Facility:[facility] Start: 01-25-2025 End: 01-25-[address] Dudley Escalona MD Work Phone: [facility] Work Phone: Start: 01-25-2025 End: 01-25-[address] Pina Gilmore DO -Lab [facility] Start: 01-25-2025 End: 01-25-2025 ambulatory Pina Gilmore Facility:[facility] Start: 01-23-2025 End: 01-23-[address] Dudley Escalona MD Work Phone: [facility] Work Phone: Start: 01-23-2025 End: 01-23-[address] Betzy Blanton MD -[facility] Start: 01-23-2025 End: 01-23-2025 ambulatory Betzy Blanton Facility:[facility] Start: 01-20-2025 End: 01-20-2025 Emergency department patient visit Dr. Dudley Escalona MD Work Phone: -Emergency Department Work Phone: Start: 01-16-2025 End: 01-16-[address] Betzy Blanton MD -[facility] Work Phone: Start: 01-16-2025 End: 01-16-[address] Dudley Escalona MD Work Phone: [facility] Work Phone: Start: 09-12-2023 Non-patient / Non-visit No Primary Care Physician [facility] Start: 09-11-2023 Non-patient / Non-visit No Primary Care Physician [facility] Start: 09-10-2023 Non-patient / Non-visit No Primary Care Physician [facility] Start: 09-09-2023 Non-patient / Non-visit No Primary Care Physician [facility] Start: 09-09-2023 End: 09-12-2023 Evaluation and management of inpatient No Primary Care Physician [facility] Work Phone: Start: 09-09-2023 End: 09-09-2023 ambulatory No Primary Care Physician [facility] Work Phone: Start: 09-09-2023 End: 09-09-2023 Patient encounter procedure No Primary Care Physician [facility] Work Phone: Start: 09-09-2023 End: 09-09-2023 Patient encounter procedure No Primary Care Physician [facility] @ Start: 09-02-2023 End: 09-02-2023 ambulatory No Primary Care Physician [facility] Work Phone: Start: 09-02-2023 End: 09-02-2023 Patient encounter procedure No Primary Care Physician [facility] Work Phone: Start: 09-02-2023 End: 09-02-2023 Patient encounter procedure No Primary Care Physician [facility] Work Phone: Start: 08-18-2023 End: 08-18-2023 Patient encounter procedure No Primary Care Physician [facility] @ Start: 08-06-2023 End: 08-06-2023 Patient encounter procedure No Primary Care Physician [facility] Work Phone: Start: 07-22-2023 End: 07-22-2023 Patient encounter procedure No Primary Care Physician [facility] Work Phone: Start: 07-07-2023 End: 07-07-2023 ambulatory No Primary Care Physician [facility] Work Phone: Start: 07-07-2023 End: 07-07-2023 Patient encounter procedure No Primary Care Physician [facility] Work Phone: Start: 06-07-2023 End: 06-07-2023 Patient encounter procedure No Primary Care Physician [facility] @ Start: 05-10-2023 End: 05-10-2023 ambulatory No Primary Care Physician [facility] Work Phone: Start: 05-10-2023 End: 05-10-2023 Patient encounter procedure No Primary Care Physician [facility] Work Phone: Start: 04-07-2023 End: 04-07-2023 Patient encounter procedure No Primary Care Physician [facility] @ Start: 03-09-2023 End: 03-09-2023 ambulatory No Primary Care Physician [facility] Work Phone: Start: 03-09-2023 End: 03-09-2023 Patient encounter procedure No Primary Care Physician [facility] Start: 03-09-2023 End: 03-09-2023 Patient encounter procedure No Primary Care Physician [facility] Work Phone: Start: 06-01-2016 End: 06-01-2016 Medication Dudley Escalona MD Work Phone: [employer] Start: 03-20-2016 End: 03-20-2016 Medication Dudley Escalona MD Work Phone: [employer] Start: 03-12-2016 End: 03-15-2016 Patient encounter procedure Dudley Escalona MD Work Phone: [employer] Start: 02-12-2015 End: 02-12-2015 Office outpatient visit 10 minutes Dudley Escalona MD Work Phone: [employer] Start: 05-15-2011 End: 05-15-2011 Patient encounter procedure Dudley Escalona MD Work Phone: [employer] Procedures Date Procedure Procedure Detail Performing Clinician Start: 01-20-2025 Urnls dip stick/tabl et reagent auto microscopy Dr. Dudley Escalona MD Work Phone: Start: 01-20-2025 Transvaginal obstetr ic ultrasonography Dr. Dudley Escalona MD Work Phone: Start: 09-09-2023 Ultrasonography for antepartum monitoring of fetus No Primary Care Physician Start: 09-09-2023 Group B Streptococcu s Culture No Primary Care Physician Start: 09-02-2023 Ultrasound scan for growth No Primary Care Physician Start: 05-10-2023 anatomy study No Primary Care Physician Start: 03-09-2023 Urine culture No Primar y Care Physician Start: 05-15-2011 End: 05-15-2011 Incision & removal foreign body subq tiss simple Mikayla Perez PA-C Work Phone: H/O: section Previous c esarean section Dr. Dudley Escalona MD Work Phone: Comment on above: oligo, Breech- inter ested in discussing Plan of Treatment Date Care Activity Detail Author Start: 01-30-2025 Choriogonadotropin ( test) [Presence] in Serum or Plasma [facility] Start: 01-20-2025 [facility] Start: 09-12-2023 Patient discharge [facility] Start: 09-10-2023 Application of abdominal corset [facility] Start: 09-09-2023 End: 09-09-2023 Notification of physician [facility] Start: 09-09-2023 Administration of [address] [facility] Start: 09-09-2023 Ambulation therapy management [facility] Start: 09-09-2023 Application of device [facility] Start: 09-09-2023 Application of intermittent pneumatic compression device [facility] Start: 09-09-2023 Assessment of risk of venous thromboembolism [facility] Start: 09-09-2023 Catheterization of vein [facility] Start: 09-09-2023 Deep breathing and coughing exercises [facility] Start: 09-09-2023 Exercises [facility] Start: 09-09-2023 Measuring intake and output [facility] Start: 09-09-2023 Procedure discontinued [facility] Start: 09-09-2023 Provision of activity privileges [facility] Start: 09-09-2023 Skin care [facility] Start: 09-09-2023 Vital signs measurements [facility] Start: 09-09-2023 Wound care [facility] Start: 09-09-2023 End: 09-09-2023 [facility] Start: 09-09-2023 Application of abdominal corset [facility] Start: 09-09-2023 Admission procedure [facility] Start: 03-09-2023 Liquid based cervical cytology screening [facility] Microscopic urinalysis [facility] Organism count, micr oscopic method [facility] Patient Education Miscarriage Th reatened [facility] Work Phone: Patient referral [facility] Work Phone: Urine microscopy: ep ithelial cells [facility] Urine microscopy: red cells [facility] White blood cell count [facility] Payers Date Payer Category Payer Self-pay 2025 Unknown [id number] Unknown [facility] [employer] 0 [id number] Unknown [id number] [id number] [id number] Unknown [id number] [id number] [id number] Unknown [id number] [id number] [id number] Unknown [id number] [id number] [id number] Unknown [id number] [id number] [id number] Unknown [id number] 2.16.8 [id number] Social History Date Type Detail Facility Start: 03-09-2023 End: 09-09-2023 Tobacco smoking status NHIS Unknown if ever smoked [facility] Start: 2000 Sex Assigned At Female W [facility] Tobacco Use: Tobacco Use: ; N ever smoker. [employer] Tobacco/Smoke Exposure: Tobacco/Smoke Exposure: ; None. [employer] Start: 01-16-2025 End: 01-20-2025 Never smoked tobacco [facility] None [employer] Work Phone: Patient currentl y [facility] Goals Date Patient Goal Desired Activity /State Clinical Notes 03-09-2023 to 01-20-2025 Note Date & Type Note Facility 01-20-2025 Radiology Diagnostic study note [facility] Imaging Services [address] [place], [place] [address] Transvaginal w/Preg US MR#: [id number] Acct: [id number] Name: BETZY WORTHY Rep #: [id number] : 2000 F 24 From: Ed Ramos MD PCP: Dr. Dudley Escalona MD Status: REG ER Study:Transvaginal w/Preg US Date of Exam: 01/20/25 Exam# [id number] Ordering Dr: Anna Mendiola DO PROCEDURE: TRANSVAGINAL W/PREG US 01/20/2025 REASON FOR EXAM: FIRST TRIMESTER BLEEDING TECHNIQUE: Transabdominal and transvaginal. COMPARISON: None. FINDINGS: Number of Gestational Sacs: 1 Gestational Sac Shape: Normal Number of Fetuses: 1 Heart Rate: 119 (average) Survey of Visible Anatomic Structures: Grossly unremarkable for gestational age. Yolk Sac: Present and unremarkable. Placenta: Presently not well-visualized Amniotic Fluid Volume: Subjectively normal for gestational age. Uterine Abnormalities: Maternal uterus is unremarkable. Ovaries / Adnexa: Both maternal ovaries are visualized and unremarkable. Mild to moderate fluid in the cul-de-sac. DIMENSIONS: Parameter Measurement / EGA Seltzer Rump Length: 7 weeks and 0 days./ Gestational Sac: 13 x 12 x 5 mm (small)/ ESTIMATED GESTATIONAL AGE: By Ultrasound: 6 weeks 3 days. By LMP: 09/12/2025. ESTIMATED DATE OF DELIVERY: By Ultrasound: 6 weeks 4 days. By LMP: 09/11/2025 US/Transvaginal w/Preg US IMPRESSION: Single live intrauterine . Details above. Reading Location: [id number] CC: Dr. Gurjit Mendiola DO; Dr. Dudley Escalona MD ~ Supervisor Yard: Signed [facility] 01-16-2025 Evaluation note Diagnosis Onset Date Resolution acute January 16, 2025 2:58pm Threatened acute December 222024 2:58pm [facility] Work Phone: 1(971) 692-507205-27-2025 Evaluation note* Diagnosis Onset Date Resolution Status Admit Date acute January 16, 2025 2:58pm Threatened acute December 222024 2:58pm SAB (spontaneous ) acute January 30, 2025 3:49pm [facility] Work Phone: 1(477) 103-605901-21-2024 Discharge summary Author Betzy Blanton [facility] September 12, 2023 10:44am Note Date/Time September 12, 2023 1 0:32am [facility] Medical Records Department [address] [place] [address] Discharge Summary 09/12/23 1031 MR#: [id number] Acct: [id number] Name: BETZY WORTHY Rep #:[id number] : 2000 23 From: Betzy guerrier MD PCP: Dr. Dudley Escalona MD Status:ADM IN Location: [place] [address] Providers Date of Admission: 09/09/23 Primary Care Physician: Dr. Dudley Escalona MD Reason For Visit: PRIMARY Diagnosis Discharge Diagnosis (1) Rubella non-immune status, antepartum: Status: Acute Code(s): O09.899 - Supervision of other high risk pregnancies, unspecified trimester; Z28.39 - Other underimmunization status (2) delivery delivered: Status: Acute Code(s): O82 - Encounter for delivery without indication Plan s/p LTCS PPD # 3 1. routine post care 2. breast feeding- support given 3. rh positive 4. rubella non immune Medications at Discharge Home Medications vitamin#30 30 mg iron-10 mg iron-folic acid 1 mg-omg3 capsule 1 cap PO DAILY 03/09/23 naproxen 500 mg tablet 500 mg PO BID PRN PRN Pain #30 tabs 09/09/23 oxycodone-acetaminophen 5 mg-325 mg tablet (Percocet) 1 tab PO Q6H PRN pain 7 days #10 tabs 09/09/23 Hospital Course Summary of Care Provided Hospital Course: patient presented for LTCS for breech and oligo, and had an uncomplicated delivery. Postoperatively patient had return of bowel and bladder function and was ambulating well, tolerating adequate p.o., and was stable for discharge to home on postop day #3. Discharge medications naproxen and Percocet. Follow-up in office in 2 weeks for incision check in 6 weeks for visit. Routine post section diet and activity instructions. Weight / BMI Weight Weight: 156 lb 1.396 oz Body Mass Index (BMI) 27.6 ABG / Lab / Microbiology Data 09/10/23 04:04 D/C Instructions Discharge Diet: No restrictions Discharge Activity: May Not Drive (for 2 weeks or while taking narcotic pain medications.), May Shower and May Take a Tub Bath (in 7 days) May shower in (days): 0 May resume sexual activity in: 4-6 weeks Weight Bearing Status: Full weight bearing Call your doctor if your incision/area has: Continuous Slow Oozing, Sudden Increased Bleeding, Increased Pain/ Swelling, Increased Redness and Foul Smelling Discharge Call your doctor if you observe: Fever of 101 or Higher and Using more than 1 pad per hour (for 2 hours) Suture Line Care: Avoid Pulling/Pushing and Avoid Pinching/Bending Cleanse incision/area with: Soap & Water and Keep Dressing Clean & Dry Please Follow Up With: Betzy Blanton MD When: Call [phone] to make an appointment for an incision check in 1-2 weeks. Meaningful Use Info Meaningful Use Diagnoses (Choose all that apply): None applicable Discharge Plan Admission Admit Date/Time: 09/09/23 17:50 Attending Provider: Betzy Blanton Primary Care Provider: Dudley Escalona Discharge Orders/Prescriptions Prescriptions: New oxycodone-acetaminophen [Percocet] 5-325 mg tablet 1 tab PO Q6H PRN (Reason: pain) 7 Days Qty: 10 0RF naproxen [naproxen] 500 mg tablet 500 mg PO BID PRN PRN (Reason: Pain) Qty: 30 1RF No Action PNV #60-ogrf-flmxe acid-omega3 30 mg iron-10 mg iron-1 mg capsule 1 cap PO DAILY Referrals / Follow Up: Dudley Escalona MD [Primary Care Provider] - Disposition Disposition (needs filled in before D/C Order can be placed): Home, Self Care 09/12/23 1044 <Electronically signed by Betzy Blanton MD> Cosigner Signature (if applicable): CC: Dr. Dudley Escalona MD; Dr. Betzy Blanton MD~ Signed [facility] Work Phone: 1(117) 203-907701-21-2024 Progress note Author Betzy Blanton [facility] September 12, 2023 10:44am Note Date/Time September 12, 2023 1 0:31am [facility] Medical Records Department [address] [place] [address] Progress Note - OBGYN 09/12/23 1030 MR#: [id number] Acct: [id number] Name: BETZY WORTHY Rep #:[id number] : 2000 23 From: Betzy guerrier MD PCP: Dr. Dudley Escalona MD Status:ADM IN Location: [place] [address]1 Subjective Subjective Patient doing well without complaints. Tolerating PO. Ambulating and voiding without difficulty. infant feeding well. Denies chest pain, shortness of breath,calf pain/swelling, fevers, chills, lightheadedness. Objective Data Objective Data Vital Signs: Vital Signs Temp Pulse Resp BP Pulse Ox O2 Del Method 97.4 F L 82 14 118/55 L 97 Room Air 09/12/23 09:00 09/12/23 09:00 09/12/23 09:00 09/12/23 09:00 09/12/23 09:00 09/12/23 09:00 Oxygen Delivery Method Room Air Weight: 156 lb 1.396 oz Body Mass Index (BMI) 27.6 Intake & Output: Intake and Output for Last 24 Hours 09/10/23 09/11/23 09/12/23 23:59 23:59 23:59 Intake Total 1751.67 / 1751.67 Output Total 1550 / 1550 Balance 201.67 / 201.67 Lab / Micro Data 09/10/23 04:04 ROS Constitutional Constitutional: Reports systems reviewed and no addt'l complaints, except as documented Cardiovascular Cardiovascular: Reports systems reviewed and no addt'l complaints, except as documented Respiratory/Chest Respiratory/Chest: Reports systems reviewed and no addt'l complaints, except as documented Gastrointestinal Gastrointestinal: Reports systems reviewed and no addt'l complaints, except as documented Physical Exam Const alert, oriented x3 and no apparent distress HEENT Head and Scalp: atraumatic Resp normal respiratory effort GI soft to palpation and non-tender Bimanual Exam - Vag & Uterus: uterus non-tender Uterus Palpation: uterus fundus firm (below Umbilicus) Assessment & Plan (1) Rubella non-immune status, antepartum: COMMENT: offer MMR (2) delivery delivered: COMMENT: SM 36 Oligo LTCS breech [facility] PLAN: Plan s/p LTCS PPD # 3 1. routine post care 2. breast feeding- support given 3. rh positive 4. rubella non immune 09/12/23 1044 <Electronically signed by Betzy Blanton MD> Cosigner Signature (if applicable): CC: ~ Signed [facility] Work Phone: 1(210) 591-669501-20-2024 Progress note Author Betzy Blanton [facility] September 11, 2023 7:17am Note Date/Time September 10, 2023 8 :33am [facility] Medical Records Department [address] [place] [id number] Progress Note - OBGYN 09/10/23 0833 MR#: [id number] Acct: [id number] Name: BETZY WORTHY Rep #:[id number] : 2000 23 From: Betzy guerrier MD PCP: Dr. Dudley Escalona MD Status:ADM [facility] Subjective Subjective Patient doing well without complaints. Tolerating PO. Ambulating and voiding without difficulty. feeding well. Denies chest pain, shortness of breath,calf pain/swelling, fevers, chills, lightheadedness. Objective Data Objective Data Vital Signs: Vital Signs Temp Pulse Resp BP Pulse Ox O2 Del Method 98.7 F 80 16 102/55 L 95 Room Air 09/10/23 08:15 09/10/23 08:15 09/10/23 08:15 09/10/23 08:15 09/10/23 08:15 09/10/23 08:15 Oxygen Delivery Method Room Air Weight: 156 lb 1.396 oz Body Mass Index (BMI) 27.6 Intake & Output: Intake and Output for Last 24 Hours 09/08/23 09/09/23 09/10/23 23:59 23:59 23:59 Intake Total 1530 / 1530 850 / 850 Output Total 400 / 400 700 / 700 Balance 1130 / 1130 150 / 150 Lab / Micro Data 09/10/23 04:04 Labs: Laboratory Results - last 24 hr 09/09/23 18:25: WBC 8.7, RBC 4.11 L, Hgb 12.7, Hct 38.0, MCV 92.5, MCH 30.9, MCHC 33.4, RDW Std Deviation 43.1, RDW Coeff of Chantale 12.8, Plt Count 226, MPV 10.8, Immature Gran % (Auto) 1.300 H, Neut % (Auto) 71.5 H, Lymph % (Auto) 18.9 L, [place] % (Auto) 6.8, Eos % (Auto) 0.9, Baso % (Auto) 0.6, Absolute Neuts (auto)6.2, Absolute Lymphs (auto) 1.64, Nucleated RBC % 0, Syphilis Total Ab Non-reactive, Blood Type A POSITIVE, Antibody Screen NEGATIVE 09/10/23 04:04: WBC 11.4 H, RBC 3.43 L, Hgb 10.7 L, Hct 32.0 L, MCV 93.3, MCH 31.2, MCHC 33.4, RDW Std Deviation 44.1 H, RDW Coeff of Chantale 13.0, Plt Count 203,MPV 10.6 ROS Constitutional Constitutional: Reports systems reviewed and no addt'l complaints, except as documented Cardiovascular Cardiovascular: Reports systems reviewed and no addt'l complaints, except as documented Respiratory/Chest Respiratory/Chest: Reports systems reviewed and no addt'l complaints, except as documented Gastrointestinal Gastrointestinal: Reports systems reviewed and no addt'l complaints, except as documented Physical Exam Const alert, oriented x3 and no apparent distress HEENT Head and Scalp: atraumatic Resp normal respiratory effort GI soft to palpation and non-tender Inspection: incision intact, healing well and drainage (none) Bimanual Exam - Vag & Uterus: uterus non-tender Uterus Palpation: uterus fundus firm (below Umbilicus) Assessment & Plan (1) Rubella non-immune status, antepartum: COMMENT: offer MMR (2) delivery delivered: COMMENT: SM 36 Oligo LTCS breech [facility] boy PLAN: Plan s/p LTCS PPD # 1 1. routine post care 2. breast feeding- support given 3. rh positive 4. rubella non immune MMR if desired Capacity Legal Cardiac Exercise Physiologist Reflex Medical hold order details:: IF a medical hold is selected below, a suggested order for a MEDICAL HOLD will reflex upon signing the document. Next of kin: [place] law dictates a PRIORITY LIST for identifying legal decision-maker/legal next of kin in the following order (LNOK): 1st: The patient?s legal guardian, if any 2nd: The patient's spouse (if status is questionable, consult Risk Management) 3rd: The patient?s adult child(natacha) (majority, if multiple children) 4th: The patient?s parents 5th: The patient?s adult siblings (majority, if multiple children siblings) 09/11/2317 <Electronically signed by Betzy Blanton MD> Cosigner Signature (if applicable): CC: ~ Signed [facility] Work Phone: 1(422) 161-875301-20-2024 Progress note Author Betzy Blanton [facility] September 11, 2023 7:16am Note Date/Time September 11, 2023 7 :16am [facility] Medical Records Department [address] [place] [id number] Progress Note - OBGYN 09/11/23 0716 MR#: [id number] Acct: [id number] Name: BETZY WORTHY Rep #:[id number] : 2000 23 From: Betzy guerrier MD PCP: Dr. Dudley Escalona MD Status:ADM IN Location: [place] [address] Subjective Subjective Patient doing well without complaints. Tolerating PO. Ambulating and voiding without difficulty. infant feeding well. Denies chest pain, shortness of breath,calf pain/swelling, fevers, chills, lightheadedness. Objective Data Objective Data Vital Signs: Vital Signs Temp Pulse Resp BP Pulse Ox O2 Del Method 97.7 F L 75 16 108/55 L 98 Room Air 09/11/23 02:20 09/11/23 02:20 09/11/23 02:20 09/11/23 02:20 09/11/23 02:20 09/11/23 02:20 Oxygen Delivery Method Room Air Weight: 156 lb 1.396 oz Body Mass Index (BMI) 27.6 Intake & Output: Intake and Output for Last 24 Hours 09/09/23 09/10/23 09/11/23 23:59 23:59 23:59 Intake Total 1530 / 1530 1751.67 / 1751.67 Output Total 400 / 400 1550 / 1550 Balance 1130 / 1130 201.67 / 201.67 Lab / Micro Data 09/10/23 04:04 ROS Constitutional Constitutional: Reports systems reviewed and no addt'l complaints, except as documented Cardiovascular Cardiovascular: Reports systems reviewed and no addt'l complaints, except as documented Respiratory/Chest Respiratory/Chest: Reports systems reviewed and no addt'l complaints, except as documented Gastrointestinal Gastrointestinal: Reports systems reviewed and no addt'l complaints, except as documented Physical Exam Const alert, oriented x3 and no apparent distress HEENT Head and Scalp: atraumatic Resp normal respiratory effort GI soft to palpation and non-tender Inspection: incision intact, healing well and drainage (none) Bimanual Exam - Vag & Uterus: uterus non-tender Uterus Palpation: uterus fundus firm (below Umbilicus) Assessment & Plan (1) Rubella non-immune status, antepartum: COMMENT: offer MMR (2) delivery delivered: COMMENT: SM 36 Oligo LTCS breech [facility] boy PLAN: Plan s/p LTCS PPD # 2 1. routine post care 2. breast feeding- support given 3. rh positive 4. rubella non immune MMR if desired 09/11/23 0716 <Electronically signed by Betzy Blanton MD> Cosigner Signature (if applicable): CC: ~ Signed [facility] Work Phone: 1(685) 530-560001-19-2024 Discharge summary Author Betzy Blanton [facility] September 09, 2023 10:13pm Note Date/Time September 09, 2023 8 :54pm [facility] Medical Records Department [address] [place] [address] Instructions for Home/Discharge Instructions 09/09/232052 MR#: [id number] Acct: [id number] Name: BETZY WORTHY Rep #:[id number] : 2000 23 From: Betzy guerrier MD PCP: Dr. Dudley Escalona MD Status:ADM IN Discharge Instructions Diet Discharge Diet: No restrictions Activity Discharge Activity: May Not Drive (for 2 weeks or while taking narcotic pain medications.), May Shower and May Take a Tub Bath (in 7 days) May shower in (days): 0 May resume sexual activity in: 4-6 weeks Weight Bearing Status: Full weight bearing Lifting Restrictions: 20 pounds Dressing / Incision Call your doctor if your incision/area has: Continuous Slow Oozing, Sudden Increased Bleeding, Increased Pain/ Swelling, Increased Redness and Foul Smelling Discharge Call your doctor if you observe: Fever of 101 or Higher and Using more than 1 pad per hour (for 2 hours) Suture Line Care: Avoid Pulling/Pushing and Avoid Pinching/Bending Cleanse incision/area with: Soap & Water and Keep Dressing Clean & Dry Follow Up Care Please Follow Up With: Betzy Blanton MD When: Call [phone] to make an appointment for an incision check in 1-2 weeks. Test Results: Test results from this visit will be discussed in further detail at your follow- up appointment, if applicable. Discharge Plan Admission Admit Date/Time: 09/09/23 17:50 Attending Provider: Betzy Blanton Primary Care Provider: Dudley Escalona Discharge Orders/Prescriptions Prescriptions: New oxycodone-acetaminophen [Percocet] 5-325 mg tablet 1 tab PO Q6H PRN (Reason: pain) 7 Days Qty: 10 0RF naproxen [naproxen] 500 mg tablet 500 mg PO BID PRN PRN (Reason: Pain) Qty: 30 1RF No Action PNV #10-npea-kcbsv acid-omega3 30 mg iron-10 mg iron-1 mg capsule 1 cap PO DAILY Referrals / Follow Up: Dudley Escalona MD [Primary Care Provider] - Disposition Disposition (needs filled in before D/C Order can be placed): Home, Self Care 09/09/232212<Electronically signed by Betzy Blanton MD>Betzy Blanton MD CC: Dr. 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 Dudley Escalona MD Status:ADM IN [facility] - General General Date of Admission: 09/09/23 HPI Narrative BETZY WORTHY, is a 23 F who presents with oligohydramnios WATSON 3.5 cm on US today, decreased movement. no vb lof no regular ctx, 2 cm dilated and breech. Maternal Data Information LANCE Calculator Estimated Delivery Date Method Current WG Current Estimate 10/04/23 LMP (Certain) 36w 3d PFSH PFSH Medical History (Updated 09/09/23 @ 20:[address] Betzy Blanton MD) History of ovarian cyst Oligohydramnios Home Medications vitamin#30 30 mg iron-10 mg iron-folic acid 1 mg-omg3 capsule 1 cap PO DAILY 03/09/23 [History Last Taken 09/09/23 12:00] Allergy/AdvReac Type Severity Reaction Status Date / Time No Known Allergies Allergy Verified 09/09/23 18:11 Family History Grandfather Heart disease Surgical History S/P appendectomy Social History adopted: No household members: spouse current occupational status: unemployed pets and animals: Yes pets and animals: dog(s) history of recent travel: No sexually active: Yes Smoking Status: Never smoker alcohol intake: never substance use type: does not use caffeine: Yes Type: coffee Number of servings: 1 seatbelt use: always do you feel safe at home: Yes 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 History 1 Elective abortions Hx Para 0 Spontaneous abortions Hx # Term Pregnancies Ectopic pregnancies Hx # Pregnancies Multiple births # of living children Visit Details Expected Delivery Route/Plan Labor Preferences- CB/BF classes: discussed and encouraged labor support person: Roger labor intervention preferences: unmedicated preferred, hydrotherapy pain management options preferred: hydrotherapy cut cord/dad catch: [] : Wants PP control planned: [] discussed possible routes of delivery and associated risks: [] special requests: [] Plans Covid status: discussed and declines Flu vaccine: declines Tdap vaccine: declines Rhogam: NA LARC form signed: completed. Problem list reviewed and updated with the most current plan of care details and appropriate orders placed. Relevant counseling for the gestational age provided. Continue routine care and follow up unless otherwise noted in visit notes/problem list details OB Flowsheet Initial Weight: Not Recorded Date -?-?-?-?-?-?-?-?-?-?-?-?- EGA Weight BP Urine Prot -?-?-?-?-?-?-?-?-?-?-?-?- Glucose FHR FuHt Pres Dilation -?-?-?-?-?-?-?-?-?-?-?-?- Effaced St Visit Note 03/09/23 -?-?-?-?-?-?-?-?-?-?-?-?- 10w 1d 125 lb 4 oz 122/75 -?-?-?-?-?-?-?-?-?-?-?-?- 165 -?-?-?-?-?-?-?-?-?-?-?-?- KW-CRL 3.45cm on handheld US. 04/07/23 -?-?-?-?-?-?-?-?-?-?-?-?- 14w 2d 125 lb 107/70 Negative -?-?-?-?-?-?-?-?-?-?-?-?- Negative 145 -?-?-?-?-?-?-?-?-?-?-?-?- KW-No jatinder/gabe andrade labs reviewed. ordered-[facility] 05/10/23 -?-?-?-?-?-?-?-?-?-?-?-?- 19w 0d 132 lb 121/73 Negative -?-?-?-?-?-?-?-?-?-?-?-?- Negative 143 -?-?-?-?-?-?-?-?-?-?-?-?- LC-no vb/crampin g. no concerns. has anatomy today. 06/07/23 -?-?-?-?-?-?-?-?-?-?-?-?- 23w 0d 137 lb 117/74 Negative -?-?-?-?-?-?-?-?-?-?-?-?- Negative 144 22 -?-?-?-?-?-?-?-?-?-?-?-?- KW-no vb/crampin g. good fm. 28 week labs discussed. Normal anatomy scan. CBE classes discussed. 07/07/23 -?-?-?-?-?-?-?-?-?-?-?-?- 27w 2d 142 lb 4 oz 121/74 Nega tive -?-?-?-?-?-?-?-?-?-?-?-?- Negative 155 26 -?-?-?-?-?-?-?-?-?-?-?-?- LC- no vb/ctx/lo f. good fm. normal 28 weeks. passed glucose. LC- no vb/ctx/lof. good fm. normal 28 weeks. passed glucose. larc completed. declines tdap. 07/22/23 -?-?-?-?-?-?-?-?-?-?-?-?- 29w 3d 144 lb 4 oz 113/72 Trac e -?-?-?-?-?-?-?-?-?-?-?-?- Negative 148 28 -?-?-?-?-?-?-?-?-?-?-?-?- LC- no lof/ctx/v b. good fm. no concerns. pedi discussed 08/06/23 -?-?-?-?-?-?-?-?-?-?-?-?- 31w 4d 147 lb 6 oz 123/77 Nega tive -?-?-?-?-?-?-?-?-?-?-?-?- Negative 145 30 -?-?-?-?-?-?-?-?-?-?-?-?- JV-- no lof, vag inal bleeding or dec fm. starting to feel round ligament pain. remedies discussed. 08/18/23 -?-?-?-?-?-?-?-?-?-?-?-?- 33w 2d 149 lb 8 oz 117/74 117/74 Negative -?-?-?-?-?-?-?-?-?-?-?-?- Negative 140 30 -?-?-?-?-?-?-?-?-?-?-?-?- KW- no vb/lof/ct x. good fm. discussed possible US at next visit if still measuring S<D. 09/02/23 -?-?-?-?-?-?-?-?-?-?-?-?- 35w 3d 154 lb 120/60 Negative -?-?-?-?-?-?-?-?-?-?-?-?- Negative 145 33 Cephalic -?-?-?-?-?-?-?-?-?-?-?-?- SM- no vb lof go od fm no regular ctx getting ultrasound today 09/09/23 -?-?-?-?-?-?-?-?-?-?-?-?- 36w 3d 154 lb 8 oz 116/78 Nega tive -?-?-?-?-?-?-?-?-?--?-?-?- Negative 140 32 Breech 2 -?-?-?-?-?-?-?-?-?-?-?-?- 60 -3 LC- no vb/ ctx/lof. good fm. breech on leopolds and handheld us. has us this afternoon. check WATSON/growth. if favorable would consent to version. NST FHR Rate Baby A Baseline: 130 Variability:: Moderate Accelerations:: 15 x 15 Decelerations:: None NST Reactive:: Yes FHR Category:: Category I Uterine Activity:: irregular ROS Constitutional Constitutional: Reports systems reviewed and no addt'l complaints, except as documented Eyes Eyes: Denies change in vision ENT HEENT: Reports systems reviewed and no addt'l complaints, except as documented; Denies headache(s) Cardiovascular Cardiovascular: Reports systems reviewed and no addt'l complaints, except as documented; Denies chest pain or dyspnea Respiratory/Chest Respiratory/Chest: Reports systems reviewed and no addt'l complaints, except as documented Gastrointestinal Gastrointestinal: Reports systems reviewed and no addt'l complaints, except as documented; Denies abdominal pain Genitourinary Genitourinary: Reports systems reviewed and no addt'l complaints, except as documented, contractions Details: present (irregular) and movement Details: present; Denies dysuria or genital lesions Musculoskeletal Musculoskeletal: Reports systems reviewed and no addt'l complaints, except as documented Neurologic Neurologic: Reports systems reviewed and no addt'l complaints, except as documented Endocrine Endocrinology: Reports systems reviewed and no addt'l complaints, except as documented Vital Signs Vital Signs Vital Signs: 09/09/23 18:04 09/09/23 18:04 09/09/23 18:04 Temperature Temperature Source Pulse Rate 86 78 Respiratory Rate Blood Pressure 122/56 H Blood Pressure Mean BP Systolic 122 BP Diastolic 56 Blood Pressure Source Blood Pressure Position Blood Pressure Location Pulse Ox Oxygen Delivery Method 09/09/23 18:04 09/09/23 19:18 09/09/23 19:18 Temperature Temperature Source Pulse Rate 93 Respiratory Rate Blood Pressure 122/71 H Blood Pressure Mean BP Systolic 122 BP Diastolic 71 Blood Pressure Source Blood Pressure Position Blood Pressure Location Pulse Ox 99 Oxygen Delivery Method 09/09/23 18:04 09/09/23 18:04 Temperature 99.2 F H Temperature Source Oral Pulse Rate 78 Respiratory Rate 16 Blood Pressure 122/56 H Blood Pressure Mean 78 BP Systolic BP Diastolic Blood Pressure Source Monitor Blood Pressure Position Right Lateral Blood Pressure Location Left Arm Pulse Ox 98 99 Oxygen Delivery Method Room Air Weight Weight: 156 lb 1.396 oz Body Mass Index (BMI) 27.6 Physical Exam Const alert, oriented x3, no apparent distress and healthy appearing HEENT normocephalic and moist oral mucous membranes Head and Scalp: atraumatic Neck full ROM, no lymphadenopathy, supple and thyroid normal General: trachea midline Lymph Lymphatic: no lymphadenopathy noted Chest inspection of chest normal Resp normal respiratory effort Cardio regular rate GI normal to inspection, nondistended, normoactive bowel sounds, soft to palpation and non-tender Inspection: gravid Extremity normal to inspection General Extremity: Negative for edema Skin no rashes or lesions noted Neuro no focal motor deficits and deep tendon reflexes 2+ bilaterally Motor Exam: strength 5/5 throughout and clonus absent Psych mental status grossly normal Labs Labs Labs: Blood Type A POSITIVE Antibody Screen NEGATIVE Hct 38.0 % (37-47) Hgb 12.7 g/dL (12.0-15.0) Obstetrics Ultrasound Syphilis Total Ab Non-reactive Rubella IgG Antibody Non-Reactive (Nonreactive) Hep Bs Antigen Non-Reactive (Nonreactive) Hepatitis C Antibody Non-Reactive (Nonreactive) Chlamydia DNA (TESHA) Negative (Negative) N.gonorrhoeae DNA (TESHA) Negative (Negative) HIV 1&2 Antibody Non-Reactive (Nonreactive) Glucose 1 Hr 50 gm 103 mg/dL (70-140) Assessment & Plan (1) Oligohydramnios in third trimester: COMMENT: watson 3.5 cm upon reviewing images recommend immediate delivery 36 weeks (2) Breech presentation: COMMENT: if WATSON normal would like to trial a version between 37-38 weeks. (3) Uterine size date discrepancy : COMMENT: growth us ordered (4) Rubella non-immune status, antepartum: COMMENT: offer MMR (5) Supervision of normal first : COMMENT: PRR LANCE 10/04/23 boy C(K)andrew Roger (6) : QUALIFIERS: Weeks of gestation: 36 weeks Qualified Code(s): Z3A.36 - 36 weeks gestation of COMMENT: NIPT low risk carrier and ntd declined, anatomy nl, nl GCT (7) Decreased movements in third trimester: PLAN: Plan proceed with primary low transverse section 09/09/232046 <Electronically signed by Betzy Blanton MD> Cosigner Signature (if applicable): CC: Dr. Dudley Escalona MD; Dr. Betzy Blanton MD~ Signed [facility] Work Phone: 1(744) 845-189301-18-2024 Procedure [facility] 03-09-2023 NotePap Smear Specimen AdequacyJuly 2022 12:35pmComment. Satisfactory for evaluation. No endocervical component is identified.An endocervical component is not commonly seen in the patient.[facility] A#[id number] Memorial HospitalComment on above:Satisfactory for evaluation. No endocervical component is identified.An endocervical component is not commonly seen in the patient.03-09-2023 NotePap Smear Specimen AdequacyJuly 2022 12:35pmComment.Satisfactory for evaluation. No endocervical component is identified.An endocervical component is not commonly seen in the patient.[facility] A#[id number] Memorial HospitalComment on above:Satisfactory for evaluation. No endocervical component is identified.An endocervical component is not commonly seen in the patient.Evaluation note* Diagnosis Onset Date Resolution Status acute Supervision of normal first [facility] Work Phone: Evaluation note* Diagnosis Onset Date Resolution Status acute Supervision of normal first acute acute Rubella non-immune status, antepartum acute Supervision of normal first acute acute Rubella non-immune status, antepartum acute Supervision of normal first [facility] Work Phone: Evaluation note* Diagnosis Onset Date Resolution Status acute Rubella non-immune status, antepartum acute Supervision of normal first acute acute Rubella non-immune status, antepartum acute Supervision of normal first acute acute Rubella non-immune status, antepartum acute Supervision of normal first acute acute Rubella non-immune status, antepartum acute Supervision of normal first [facility] Work Phone: Evaluation note* Diagnosis Onset Date Resolution Status acute Rubella non-immune status, antepartum acute Supervision of normal first acute acute Rubella non-immune status, antepartum acute Supervision of normal first acute acute Rubella non-immune status, antepartum acute Supervision of normal first acute acute Rubella non-immune status, antepartum acute Supervision of normal first acute acute Rubella non-immune status, antepartum acute Supervision of normal first acute acute Rubella non-immune status, antepartum acute Supervision of normal first acute Uterine size date discrepancy acute Tetanus, diphtheria, and anil llular pertussis (Tdap) vaccination declined resolved acute Rubella non-immune status, antepartum acute Supervision of normal first acute Uterine size date discrepancy acute [facility] Work Phone: Evaluation note* Diagnosis Onset Date Resolution Status Rubella non-immune status, antepartum acute resolved Supervision of normal first resolved Rubella non-immune status, antepartum acute resolved Supervision of normal first resolved Rubella non-immune status, antepartum acute resolved Supervision of normal first resolved Rubella non-immune status, antepartum acute resolved Supervision of normal first resolved Rubella non-immune status, antepartum acute resolved Supervision of normal first resolved Tetanus, diphtheria, and anil llular pertussis (Tdap) vaccination declined resolved Uterine size date discrepancy resolved Rubella non-immune status, antepartum acute resolved Supervision of normal first resolved Uterine size date discrepancy resolved Rubella non-immune status, antepartum acute Breech presentation resolved resolved Supervision of normal first resolved Uterine size date discrepancy resolved delivery delivered acute Rubella non-immune status, antepartum acute Breech presentation resolved Decreased movements in third trimester resolved Oligohydramnios in third trimester resolved resolved Supervision of normal first resolved Uterine size date discrepancy resolved [facility] Work Phone: Evaluation note* Diagnosis Onset Date Resolution Status Admit Date acute January 16, 2025 2:58pm Threatened acute December 222024 2:58pm [facility] Work Phone: Reason for referral (narrative)No reason for referral information availableBlJohn [facility] Work Phone: Chief Complaint and Reason for Visit Chief Complaint Admit Date Spotting in early January 16 2:58pm VAG BLEED January 20, 2025 2:25p m Reason for Visit Admit Date January 16, 2025 2:58p m Threatened January 16, 2025 2:58p m Chief Complaint NOB LMP 5/15 PAP Reason for Visit Supervision of normal first Chief Complaint NOB LMP 5/15 PAP 14 WK OB 19 WK OB CERVICAL LENGTH Reason for Visit Supervision of normal first Rubella non-immune status, antepartum Supervision of normal first Rubella non-immune status, antepartum Supervision of normal first Chief Complaint 14 WK OB 19 WK OB CERVICAL LENGTH 23 WK OB E ORDER 27 WK OB, Req for LC Reason for Visit Rubella non-immune status, antepartum Supervision of normal first Rubella non-immune status, antepartum Supervision of normal first Rubella non-immune status, antepartum Supervision of normal first Rubella non-immune status, antepartum Supervision of normal first Chief Complaint 19 WK OB CERVICAL LENGTH 23 WK OB E ORDER 27 WK OB, Req for LC 29 WK OB 31 WK OB 33 WK OB 35 WK OB UTERINE SIZE DISCREPANCY Reason for Visit Rubella non-immune status, antepartum Supervision of normal first Rubella non-immune status, antepartum Supervision of normal first Rubella non-immune status, antepartum Supervision of normal first Rubella non-immune status, antepartum Supervision of normal first Rubella non-immune status, antepartum Supervision of normal first Rubella non-immune status, antepartum Supervision of normal first Uterine size date discrepancy Tetanus, diphtheria, and acellular pertussis (Tdap) vaccination declined Rubella non-immune status, antepartum Supervision of normal first Uterine size date discrepancy Chief Complaint 23 WK OB E ORDER 27 WK OB, Req for LC 29 WK OB 31 WK OB 33 WK OB 35 WK OB UTERINE SIZE DISCREPANCY 36 WEEK OB CHECK UP [place] PRIMARY PRIMARY PRIMARY PRIMARY PRIMARY Reason for Visit Rubella non-immune s tatus, antepartum Supervision of normal first Rubella non-immune status, antepartum Supervision of normal first Rubella non-immune status, antepartum Supervision of normal first Rubella non-immune status, antepartum Supervision of normal first Rubella non-immune status, antepartum Supervision of normal first Tetanus, diphtheria, and acellular pertussis (Tdap) vaccination declined Uterine size date discrepancy Rubella non-immune status, antepartum Supervision of normal first Uterine size date discrepancy Rubella non-immune status, antepartum Breech presentation Supervision of normal first Uterine size date discrepancy delivery delivered Rubella non-immune status, antepartum Breech presentation Decreased movements in third trimester Oligohydramnios in third trimester Supervision of normal first Uterine size date discrepancy Chief Complaint Admit Date Spotting in early January 16 2:58pm Chief Complaint Admit Date Spotting in early January 16 2:58pm VAG BLEED January 20, 2025 2:25p m Early spotting FU per SM January 30, 2025 3:49pm Reason for Visit Admit Date January 16, 2025 2:58p m Threatened January 16, 2025 2:58p m SAB (spontaneous ) January 30 3:49pm Advance Directives Advance Directive Response Recorded Date/ Time Living Will No September 09 6:14pm Power of Flume Maker No September 09, 2023 6:14pm Advance Directive Response Recorded Date/ Time Do you have a Healthcare Power of Flume Maker? No January 20, 2025 2:55pm Summary Purpose Family History No Family History Records Found Additional Source Comments Care Teams (unrecognized sec tion and content) Team Status: Active Member Role Status Dates No Primary Care Physician Primary Care Provider Active Team Status: Inactive Member Role Status Dates No Primary Care Physician Primary Care Provider, Refer ring Provider Active Tatiana Kinsey CNM Attending Provider Active Team Status: Inactive Member Role Status Dates No Primary Care Physician Primary Care Provider Active Tatiana Kinsey CNM Attending Provider, Referring Pro vider Active Team Status: Inactive Member Role Status Dates No Primary Care Physician Primary Care Provider, Refer ring Provider Active Haritha Kurtz CNM Attending Provider Active Team Status: Active Member Role Status Dates Dr. Dudley Escalona MD Primary Care Provider Active Team Status: Inactive Member Role Status Dates No Primary Care Physician Referring Provider Active Haritha Kurtz CNM Attending Provider Active Dr. Dudley Escalona MD Primary Care Provider Active Team Status: Inactive Member Role Status Dates Dr. Dudley Escalona MD Primary Care Provider Active Tatiana Kinsey CNM Attending Provider, Referring Pro vider Active Team Status: Inactive Member Role Status Dates Dr. Dudley Escalona MD Primary Care Provider, Referring Provider Active Haritha Kurtz CNM Attending Provider Active Team Status: Inactive Member Role Status Dates Dr. Dudley Escalona MD Primary Care Provider, Referring Provider Active Dr. Pina Gilmore DO Attending Provider Activ e Team Status: Inactive Member Role Status Dates Dr. Dudley Escalona MD Primary Care Provider, Referring Provider Active Tatiana Kinsey CNM Attending Provider Active Team Status: Inactive Member Role Status Dates Dr. Dudley Escalona MD Primary Care Provider, Referring Provider Active Dr. Betzy Blanton MD Attending Provider Active Team Status: Active Member Role Status Dates Dr. Dudley Escalona MD Primary Care Provider Active Dr. Betzy Blanton MD Admit Provid er, Attending Provider, Other Provider Active Team Status: Inactive Member Role Status Dates Dr. Dudley Escalona MD Primary Care Provider Active Dr. Betzy Blanton MD Admit Provider, Attending Provider Active Team Status: Active Member Role Status Dates Dr. Dudley Escalona MD Primary Care Provider Active Dr. Betzy Blanton MD Attending Provider, Referr ing Provider Active Team Status: Inactive Member Role Status Dates Dr. Dudley Escalona MD Primary Care Provider Active Dr. Betzy Blanton MD Attending Provider, Referr ing Provider Active Team Status: Inactive Member Role Status Dates Dr. Dudley Escalona MD Primary Care Provider Active Start: January 16, 2025 End: January 16, 2025 Dr. Dudley Escalona MD Referring Provider Active S tart: January 16, 2025 End: January 16, 2025 Dr. Betzy Blanton MD Attending Provider Active Start: January 16, 2025 End: January 16, 2025 Team Status: Inactive Member Role Status Dates Dr. Dudley Escalona MD Primary Care Provider Active Start: January 20, 2025 End: January 20, 2025 Dr. Gurjit Mendiola DO Emergency Provider Active Start: January 20, 2025 End: January 20, 2025 Team Status: Inactive Member Role Status Dates Dr. Dudley Escalona MD Primary Care Provider Active Start: January 20, 2025 End: January 20, 2025 Dr. Gurjit Mendiola DO Attending Provider Active Start: January 20, 2025 End: January 20, 2025 Dr. Gurjit Mendiola DO Emergency Provider Active Start: January 20, 2025 End: January 20, 2025 Team Status: Inactive Member Role Status Dates Dr. Dudley Escalona MD Primary Care Provider Active Start: January 23, 2025 End: January 23, 2025 Dr. Betzy Blanton MD Attending Provider Active Start: January 23, 2025 End: January 23, 2025 Dr. Betzy Blanton MD Referring Provider Active Start: January 23, 2025 End: January 23, 2025 Team Status: Active Member Role Status Dates Dr. Dudley Escalona MD Primary Care Provider Active Start: January 25, 2025 Dr. Pina Gilmore DO Attending Provider Activ e Start: January 25, 2025 Dr. Pina Gilmore DO Referring Provider Activ e Start: January 25, 2025 Team Status: Inactive Member Role Status Dates Dr. Dudley Escalona MD Primary Care Provider Active Start: January 25, 2025 End: January 25, 2025 Dr. Pina Gilmore DO Attending Provider Activ e Start: January 25, 2025 End: January 25, 2025 Dr. Pina Gilmore DO Referring Provider Activ e Start: January 25, 2025 End: January 25, 2025 Team Status: Active Member Role Status Dates Dr. Dudley Escalona MD Primary Care Provider Active Start: January 30, 2025 Tatiana Kinsey CNM Attending Provider Active S tart: January 30, 2025 Tatiana Kinsey CNM Referring Provider Active S tart: January 30, 2025 Team Status: Inactive Member Role Status Dates Dr. Dudley Escalona MD Primary Care Provider Active Start: January 30, 2025 End: January 30, 2025 Dr. Dudley Escalona MD Referring Provider Active S tart: January 30, 2025 End: January 30, 2025 Tatiana Kinsey CNM Attending Provider Active S tart: January 30, 2025 End: January 30, 2025 Team Status: Inactive Member Role Status Dates Dr. Dudley Escalona MD Primary Care Provider Active Start: January 30, 2025 End: January 30, 2025 Tatiana Kinsey CNM Attending Provider Active S tart: January 30, 2025 End: January 30, 2025 Tatiana Kinsey CNM Referring Provider Active S tart: January 30, 2025 End: January 30, 2025 Goals (unrecognized section and content) Goals may be documented in a n alternate sectionGoals may be documented in an alternate sectionGoals may be documented in an alternate sectionGoals may be documented in an alternate sectionGoals may be documented in an alternate sectionGoals may be documented in an alternate sectionGoals may be documented in an alternate sectionGoals may be documented in an alternate sectionGoals may be documented in an alternate sectionGoals may be documented in an alternate section INFORMATION SOURCE (unrecogn ized section and content) DATE CREATED AUTHOR 02/01/2025 [facility] FOR RECORDS PERTAINING TO PATIENTS WHO ARE OR HAVE BEEN ENROLLED IN A CHEMICAL DEPENDENCY/SUBSTANCEABUSE PROGRAM, SOME INFORMATION MAY BE OMITTED. This clinical summary was aggregated from multiple sources. Caution should be exercised in using it in the provision of clinical care. This summary normalizes information from multiple sources, and as a consequence, information in this document may materially change the coding, format and clinical context of patient data. In addition, data may be omitted in some cases. CLINICAL DECISIONS SHOULD BE BASED ON THE PRIMARY CLINICAL RECORDS. [facility]. provides no warranty or guarantee of the accuracy or completeness of information in this document.
== END | disposition home or self-care (01) ==
PROVIDERS: PCP Family Medicine; Referring Provider Advanced Practice Midwife; Visit Provider Advanced Practice Midwife
DX: O03.9 Complete or unspecified spontaneous abortion without complication (principal)
CPT/HCPCS: 36415; 84702